=== PATIENT | male | born 1970 | race Two or more races ===

== ENCOUNTER 2023-03-01 12:24 | Outpatient (OUT) | payer SELFPAY ==
[2023-03-01 12:44] LABS: Basophils Percent Auto 0.5 % (0.2-2.0); Eosinophils Absolute Auto 0.1 10^3/uL (0.0-0.7); Eosinophils Percent Auto 1.1 % (0.9-7.0); Hematocrit 40.5 % (42.0-54.0); Hemoglobin 14.8 g/dL (14.0-18.0); Immature Granulocytes Abs Auto 0.02 10^3/uL (0.00-0.03); Immature Granulocytes Pct Auto 0.2 % (0.0-0.5); Lymphocytes Absolute Auto 2.2 10^3/uL (1.2-3.8); Lymphocytes Percent Auto 26.3 % (20.5-60.0); Mean Corpuscular HGB Conc 36.5 g/dL (29.9-35.2); Mean Corpuscular Hemoglobin 31.4 pg (25.9-34.0); Mean Platelet Volume 9.9 fL (9.5-13.5); Monocytes Absolute Auto 0.6 10^3/uL (0.3-0.8); Monocytes Percent Auto 7.2 % (1.7-12.0); Neutrophils Absolute Auto 5.3 10^3/uL (1.4-6.5); Neutrophils Percent Auto 64.7 % (43.0-75.0); Platelet Count 207 10^3/uL (150-450); Red Blood Count 4.71 10^6/uL (4.70-6.10); Red Cell Distribution Width 11.9 % (11.0-15.0); White Blood Count 8.3 10^3/uL (4.0-11.0)
[2023-03-01 12:55] LABS: Estimated Average Glucose 306 mg/dL; Glycohemoglobin A1C 12.3 % (4.5-6.2)
[2023-03-01 12:56] LABS: Microalbumin Urine Random <1.3 mg/dL (<=30.0)
[2023-03-01 13:55] LABS: Alanine Aminotransferase 28 U/L (16-63); Albumin Level 3.5 g/dL (3.4-5.0); Alkaline Phosphatase 63 U/L (46-116); Anion Gap 11.7; Aspartate Amino Transferase 12 U/L (15-37); BUN Creatinine Ratio 16.5; Bilirubin Total 0.7 mg/dL (0.2-1.0); Calcium 8.5 mg/dL (8.5-10.1); Carbon Dioxide 30.6 mmol/L (21.0-32.0); Chloride 91 mmol/L (98-107); Chol HDL Ratio 3.8; Cholesterol 206 mg/dL (<=200); Estimated GFR (African America >60 (>=60); Estimated GFR (Non-African Ame >60 (>=60); Globulin 3.5 g/dL; HDL Cholesterol 54 mg/dL (40-60); Potassium 4.3 mmol/L (3.5-5.1); Sodium 129 mmol/L (136-145); Thyroid Stimulating Hormone 1.478 uIU/mL (0.358-3.740); Triglycerides 329 mg/dL (<=150); VLDL CHOLESTEROL 65.8 mg/dL
[2023-03-01 13:58] LABS: Glucose 597 mg/dL (74-106)
== END 2023-03-01 12:25 | disposition home or self-care (01) ==
PROVIDERS: PCP Internal Medicine; Visit Provider Internal Medicine
DX: Z00.00 Encounter for general adult medical examination without abnormal findings (principal); Z12.5 Encounter for screening for malignant neoplasm of prostate
CPT/HCPCS: 36415; 80053; 80061; 82043; 83036; 84443; 85025; G0103

== ENCOUNTER 2023-06-07 12:33 | Outpatient (OUT) | payer SELFPAY ==
--- NOTE | 2023-06-07 12:37 | XR_ITS ---
[facility] [place] [id number] Patient Name: KARTHIK SCHUSTER MRN: [id number] date: 1970 Sex: M Assigned Patient Location: [facility] Current Patient Location: [facility] Accession/Order Number: [id number] Exam Date: 06/07/2023 13:00 Report Date: 06/07/2023 16:22 At the request of: GEORGE DAMON Procedure: XR lumbar spine 6V w bending EXAM: XR lumbar spine 6V w bending HISTORY: acute bilateral low back pain with right side sciatica COMPARISON: None. TECHNIQUE: 7 view study FINDINGS: Vertebral bodies are normal in height. There is disc space narrowing at L4-5 with early anterior osteophytosis. Mild disc space narrowing at L1-2, L2-3, and L3-4. Anterior osteophytosis at L2-3 and L3-4. There is facet arthropathy at L4-5 and L5-S1. Comparison of flexion and extension views shows no segmental instability. Paravertebral soft tissues are unremarkable. XR/XR lumbar spine 6V w bending IMPRESSION: Multilevel lumbar spondylosis. Electronically authenticated by: Tabatha PEDRAZA Date: 06/07/2023 16:22
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
--- OUTSIDE RECORDS SUMMARY | 2023-06-07 12:49 | XMS_ITS | CCD ---
Author Name Unknown Address [address] [facility] [address] [place] [id number] Organization [facility] Care Team Providers Care [employer] Vault Supervisor Name Role Phone LANCE DAMON Consulting Unavailable NELSON, LANCE Attending Unavailable NELSON, LANCE Admitting Unavailable NELSON, LANCE Consulting Unavailable NELSON, LANCE Attending Unavailable BALL, LANCE Admitting Unavailable Nelson, Lance Unavailable Medications Current Medications Medication Drug Class(es) Dates Sig (Normalized) Sig (Original) benazepril hydrochloride 10 mg oral tablet (5 sources) Angiotensin Converting Enzyme Inhibitor Start: 10-10-2022 take 1 tablet by mouth every twenty-four hours Benazepril HCl 10 MG 1 tablet Orally Once a day Oct, Active glimepiride 1 mg oral tablet (3 sources) Sulfonylurea Start: 03-05-2023 take 1 tablet by mouth every twenty-four hours Glimepiride 1 MG 1 tablet with breakfast or the first main meal of the day Orally Once a day for 30 days Feb, Active 3 ml insulin glargine 100 unt/ml pen injector (5 sources) Insulin Analog Start: 03-01-2023 Insulin Glargine Solostar 100 UNIT/ML 10 u: increase 2u every 3 days until FBS Feb, Active 3 ml insulin lispro 100 unt/ml pen injector (5 sources) Insulin Analog Start: 03-01-2023 HumaLOG KwikPen 100 UNIT/ML 2 - 12u per sliding scale Subcutaneous Prior to meals tid for 30 days Feb, Active metFORMIN hydrochloride 500 mg oral tablet (3 sources) Biguanide Start: 03-05-2023 take 1 tablet by mouth every twenty-four hours metFORMIN HCl 500 MG 1 tablet with a meal Orally Once a day for 30 days Feb, Active Completed/Discontinued Medications Medication Drug Class(es) Dates Sig (Normalized) Sig (Original) azithromycin 250 mg oral tablet (5 sources) Macrolide Antimicrobial Start: 01-17-2021 take 1 tablet by mouth once daily Azithromycin 250 MG Azithromycin 250MG, 2 (two) Tablet today followed by 1 daily # 6, 01/17/2021, No Refill. Active Oral today followed by 1 daily for 5 Jan, Not-Taking Problems Problem Classification Problem Date Documented Da te Episodic/Chronic Diabetes mellitus with complications (11 sources) Type 2 diabetes mellitus with hyperglycemia; Translations: [Type 2 diabetes mellitus] Onset: 04-22-2020 Chronic Disorders of lipid metabolism (11 sources) Mixed hyperlipidemia; Translations: [Mixed hyperlipidemia] Chronic Esophageal disorders (5 sources) Gastro-esophageal reflux disease with esophagitis; Translations: [Gastroesophageal reflux disease with esophagitis without hemorrhage] Chronic Essential hypertension (7 sources) Essential (primary) hypertension; Translations: [Essential hypertension] Onset: 05-05-2020 Chronic Immunizations and screening for infectious disease (4 sources) Contact with and (suspected) exposure to other viral communicable diseases; Translations: [CONTCT EXPS OTH VIRL COMMUNICABL DZ] Onset: 02-25-2020 Episodic Malaise and fatigue (1 source) Other fatigue; Translations: [OTHER FATIGUE] Onset: 05-05-2020 Episodic Other nutritional; endocrine; and metabolic disorders (1 source) Abnormal weight loss Episodic Other screening for suspected conditions (not mental disorders or infectious disease) (1 source) Encounter for screening for malignant neoplasm of colon Episodic Substance-related disorders (6 sources) Nicotine dependence; Translations: [Nicotine dependence, cigarettes, uncomplicated] Chronic Results Test Name Value Interpretation Reference Range Facil ity GLYCOHEMOGLOBIN A1Con 2019 Glucose [Mass/Vol] 108 mg/dL Normal [facility] Comment on above: Performed By: #### A 1C #### [facility] [address], [place] [address] Semaj Colmenares HbA1c (Bld) [Mass fraction] 5.4 % Normal <=6.0 [facility] Comment on above: Performed By: #### A 1C #### [facility] [address], [place] [address] Semaj Colmenares MICROALBUMIN, RAND URon 04-06 mALB 7.1 mg/dL Normal <=30.0 [facility] Comment on above: Performed By: #### M ALBR #### [facility] [address] [place], [place] [id number] Semaj Dedra mALBH PLEASE NOTE: NORMAL RANGE CHANGE, TESTING PERFORMED AT [facility]. Normal [facility] Comment on above: Performed By: #### M ALBR #### [facility] [address] [place] [id number] Semaj Dedra PROF CHEM 8 (BAS METB)on Anion gap [Moles/Vol] 12.1 mmol/L Normal [facility] Comment on above: Performed By: #### T SH, BMP #### [facility] [address] [place] [address] Semaj Dedra Calcium [Mass/Vol] 9.2 mg/dL Normal 8.4-10.2 [facility] Comment on above: Performed By: #### T SH, BMP #### [facility] [address] [place] [address] Semaj Dedra Chloride [Moles/Vol] 105 mmol/L Normal 98-107 [facility] Comment on above: Performed By: #### T SH, BMP #### [facility] [address] [place] [address] Semaj Dedra CO2 [Moles/Vol] 31.0 mmol/L Critically high 22.0-30.0 [facility] Comment on above: Performed By: #### T SH, BMP #### [facility] [address] [place] [address] Semaj Dedra Creatinine [Mass/Vol] 0.80 mg/dL Normal 0.66-1.25 [facility] Comment on above: Performed By: #### T SH, BMP #### [facility] [address] [place] [address] Semaj Dedra EGFR-AF MACEDONIAN >60 Normal >=60 [facility] Comment on above: Performed By: #### T SH, BMP #### [facility] [address] [place] [address] Semaj Dedra EGFR-NON AF MACEDONIAN >60 Normal >=60 [facility] Comment on above: Performed By: #### T SH, BMP #### [facility] [address] [place] [address] Semaj Dedra Glucose [Mass/Vol] 174 mg/dL Critically high 74-[address] [facility] Comment on above: Performed By: #### T SH, BMP #### [facility] [address] [place] [id number] Semaj Dedra Potassium [Moles/Vol] 4.1 mmol/L Normal 3.4-5.0 [facility] Comment on above: Performed By: #### T LOREN, BMP #### [facility] [address] [place] [address] Semaj Dedra Sodium [Moles/Vol] 144 mmol/L Normal 137-145 [facility] Comment on above: Performed By: #### T LOREN, BMP #### [facility] [address] [place] [address] Semaj Dedra Urea nitrogen [Mass/Vol] 17.0 mg/dL Normal 9.0-20.0 [facility] Comment on above: Performed By: #### T LOREN, BMP #### [facility] [address] [place] [address] Semaj Dedra Urea nitrogen/Creatinine [Mass ratio] 21.2 mg/mg Normal [facility] Comment on above: Performed By: #### T LOREN, BMP #### [facility] [address] [place] [address] Semaj Dedra TSHon 04-22-2020 TSH Qn 1.219 uIU/mL Normal 0.470-4.680 [facility] Comment on above: Performed By: #### T LOREN, BMP #### [facility] [address] [place] [address] Semaj Dedra TSH Qn SEE BELOW Normal [facility] Comment on above: Result Comment: <0.3 4 UIU/ml HYPERTHYROID 0.34-5.60 UIU/ml EUTHYROID >5.60 UIU/ml HYPOTHYROID Performed By: #### T LOREN, BMP #### [facility] [address] [place], [place] [id number] Semaj Dedra COVID-19 PCRon 02-26-2020 SARS-CoV-2, ABDIRAHMAN Not Detected Normal Not Detected [facility] Comment on above: Result Comment: This nucleic acid amplification test was developed and its performance characteristics determined by [employer]. Nucleic acid amplification tests include PCR and TMA. This test has not been FDA cleared or approved. This test has been authorized by FDA under an Emergency Use Authorization (EUA). This test is only authorized for the duration of time the declaration that circumstances exist justifying the authorization of the emergency use of in vitro diagnostic tests for detection of SARS-CoV-2 virus and/or diagnosis of COVID-19 infection under section 564(b)(1) of the Act, 21 U.S.C. 360bbb-3(b) (1), unless the authorization is terminated or revoked sooner. When diagnostic testing is negative, the possibility of a false negative result should be considered in the context of a patient's recent exposures and the presence of clinical signs and symptoms consistent with COVID-19. An individual without symptoms of COVID-19 and who is not shedding SARS-CoV-2 virus would expect to have a negative (not detected) result in this assay. Performed By: #### C VDPCR #### [facility] [address] [place] [address] Semajcherelle Colmenares Vital Signs Date Time Vital Sign Value Performing Clinician Facility 03-01-2023 11:30-0400 Body height 185.42 cm [facility] Other [facility] Other 03-01-2023 11:30-0400 Body mass index (BMI) [Ratio] 19.79 kg/m2 [facility] Other [facility] Other 03-01-2023 11:30-0400 Body weight 68.04 kg [facility] Other [facility] Other 03-01-2023 11:30-0400 Diastolic blood pressure 77 mm[Hg] [facility] Other [facility] Other 03-01-2023 11:30-0400 Respiratory rate 12 /min Lance Damon Other [facility] Other 03-01-2023 11:30-0400 Systolic blood pressure 107 mm[Hg] Lance Damon Other [facility] Other Encounters Encounter Date Encounter Type Care Provider Facility Start: 04-05-2023 End: 04-05-2023 ambulatory Lance Damon Other [facility] Other Start: 04-05-2023 Telephone encounter Lance Damon [facility] Start: 03-09-2023 End: 03-09-2023 ambulatory Lance Damon Other [facility] Other Start: 03-09-2023 Telephone encounter Lance Damon [facility] Start: 03-05-2023 End: 03-05-2023 ambulatory Lance Damon Other [facility] Other Start: 03-05-2023 Telephone encounter Lance Damon [facility] Start: 03-01-2023 End: 03-01-2023 ambulatory Lance Damon Other [facility] Other Start: 03-01-2023 Encounter for genera l adult medical examination without abnormal findings Lance Damon [facility] Start: 03-01-2023 Periodic preventive med est patient 40-64yrs Lance Damon [facility] Start: 03-01-2023 Telephone encounter Lance Damon [facility] Start: 04-22-2020 End: 04-23-2020 Patient encounter procedure LANCE DAMON Facility:[facility] Start: 02-25-2020 End: 02-26-2020 Patient encounter procedure LANCE DAMON Facility:[facility] Payers Date Payer Category Payer Unknown [id number] 1970 Unknown [id number] 1957 Self-pay [id number] 1957 Unknown [id number] Social History Date Type Detail Facility Sex Assigned At [facility] Other Medical Equipment Procedure Code Equipment Code Equipment Origin al Text Equipment Identifier Dates Pen Keo [id number] X 6 MM Start: 03-01-2023 Evaluation note 03-05-2023 Note Date & Type Note Facility 03-05-2023 Evaluation note Encounter Date Diagnosis Assessment Notes Feb, Type 2 diabetes mellitus with hyperglycemia , without long-term current use of insulin (ICD-10 - E11.65) [facility] Other Evaluation note 03-01-2023 Note Date & Type Note Facility 03-01-2023 Evaluation note Encounter Date Diagnosis Assessment Notes Feb, Type 2 diabetes mellitus with hyperglycemia, without long-term current use of insulin (ICD-10 - E11.65) He has not taken any medication for years He has significant weight loss and likely is hyperglycemic Check A1C and Microalbumin Patient's labs reveal an A1C > 12% - recommend insulin therapy - Basal Insulin at 16u q HS and titrate up 2u every 3 days - Humalog Insulin per sliding scale before meals - diabetic education Feb, Wellness examination (ICD-10 - Z00.00) Healthy diet and exercise. Reviewed age-appropriate preventive testing recommended. Feb, Primary hypertension (ICD-10 - I10) This patient is instructed to consume a healthy, low-fat, low-salt diet. They are also encouraged to continue exercise to achieve/maintain a normal BMI. Feb, Mixed hyperlipidemia (ICD-10 - E78.2) Instructed on diet and exercise.Discusse d the beneficial effects of lowering cholesterol in reducing the risk for cerebrovascular and cardiovascular disease. Not taking any medication Will check lipid profile and initiate treatment Feb, Cigarette nicotine dependence without complication (ICD-10 - F17.210) This patient has been encouraged to quit tobacco use immediately. They are aware of the hazards associated with tobacco use, including but not limited to respiratory infections, vascular disease and cancers. Feb, Unexplained weight loss (ICD-10 - R63.4) Maintains good appetite but has lost weight Checking TSH, A1C, Hepatic pf and GFR If unable to expain w/ labs, will refer for EGD, colonoscopy and CT abd/pelvis Feb, Colon cancer screening (ICD-10 - Z12.11) [facility] Other Evaluation note Note Date & Type Note Facility Evaluation note No Information [facility] Other History general Narrative - Reported Note Date & Type Note Facility History general Narrative - Reported Type Medical History Hyperlipidemia, mixed Medical History Controlled type 2 di abetes mellitus with hyperglycemia, without long-term current use of insulin Medical History Cigarette nicotine d ependence without complication Medical History Gastroesophageal ref lux disease with esophagitis without hemorrhage Surgical History No know Surgical history [facility] Other History general Narrative - Reported Note Date & Type Note Facility History general Narrative - Reported Type Medical History Hyperlipidemia, mixed Medical History Controlled type 2 di abetes mellitus with hyperglycemia, without long-term current use of insulin Medical History Cigarette nicotine d ependence without complication Medical History Gastroesophageal ref lux disease with esophagitis without hemorrhage Surgical History No Surgical history information [facility] Other Summary Purpose Family History No Family History Records Found Advance Directives No Advanced Directives Records Found Additional Source Comments (unrecognized sect ion and content) No Status Records Found INFORMATION SOURCE (unrecogn ized section and content) DATE CREATED AUTHOR 05/06/2020 [facility] [place] [facility] REASON FOR VISIT (unrecogniz ed section and content) Roger InformationNo Info rmationNeeds OV next weekrefill FOR RECORDS PERTAINING TO PATIENTS WHO ARE OR HAVE BEEN ENROLLED IN A CHEMICAL DEPENDENCY/SUBSTANCEABUSE PROGRAM, SOME INFORMATION MAY BE OMITTED. This clinical summary was aggregated from multiple sources. Caution should be exercised in using it in the provision of clinical care. This summary normalizes information from multiple sources, and as a consequence, information in this document may materially change the coding, format and clinical context of patient data. In addition, data may be omitted in some cases. CLINICAL DECISIONS SHOULD BE BASED ON THE PRIMARY CLINICAL RECORDS. [employer] provides no warranty or guarantee of the accuracy or completeness of information in this document.
== END 2023-06-07 12:34 | disposition home or self-care (01) ==
LOC: RAD 12:33
PROVIDERS: PCP Internal Medicine; Visit Provider Internal Medicine
DX: M54.41 Lumbago with sciatica, right side (principal); S06.0X0A Concussion without loss of consciousness, initial encounter; M47.816 Spondylosis without myelopathy or radiculopathy, lumbar region
CPT/HCPCS: 70450; 72114

== ENCOUNTER 2023-12-31 09:02 | Outpatient (OUT) | payer BC, SELFPAY ==
--- NOTE | 2023-12-31 09:16 | XR_ITS ---
[facility] [place] [id number] Patient Name: KARTHIK SCHUSTER MRN: [id number] date: 1970 Sex: M Assigned Patient Location: LAB Current Patient Location: Accession/Order Number: [id number] Exam Date: 12/31/2023 09:25 Report Date: 01/01/2024 06:29 At the request of: GEORGE DAMON Procedure: XR lumbar spine 6V w bending EXAMINATION: XR lumbar spine 6V w bending HISTORY: Low Back Pain COMPARISON: XR lumbar spine 06/07/2023 FINDINGS: BONES: Mild right convex curvature of lumbar spine. Mild straightening of the normal lordotic curvature. No fracture, spondylolisthesis, or change in alignment during flexion and extension. DISC SPACES: Mild disc space narrowing L1-L2 and L2-L3 with suspected prominent posterior disc osteophyte complexes. Moderate narrowing L4-L5. Moderate degenerative facet arthropathy L4-L5, L5-S1. PARASPINOUS: Numerous small calcifications within abdomen, probably anterior and right of the spine. OTHER: Negative. XR/XR lumbar spine 6V w bending IMPRESSION: 1. Grossly stable multilevel degenerative changes of lumbar spine. 2. No appreciable acute abnormality. Electronically authenticated by: DELVIS BANDA Date: 01/01/2024 06:29
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
[2023-12-31 09:32] LABS: Basophils Absolute Auto 0.1 10^3/uL (0.0-0.1); Basophils Percent Auto 0.8 % (0.2-2.0); Eosinophils Absolute Auto 0.1 10^3/uL (0.0-0.7); Eosinophils Percent Auto 1.2 % (0.9-7.0); Hematocrit 44.4 % (42.0-54.0); Hemoglobin 15.7 g/dL (14.0-18.0); Immature Granulocytes Abs Auto 0.02 10^3/uL (0.00-0.03); Immature Granulocytes Pct Auto 0.3 % (0.0-0.5); Lymphocytes Absolute Auto 1.8 10^3/uL (1.2-3.8); Lymphocytes Percent Auto 24.2 % (20.5-60.0); Mean Corpuscular HGB Conc 35.4 g/dL (29.9-35.2); Mean Corpuscular Hemoglobin 31.6 pg (25.9-34.0); Mean Corpuscular Volume 89.3 fL (80.0-94.0); Monocytes Absolute Auto 0.4 10^3/uL (0.3-0.8); Neutrophils Percent Auto 67.5 % (43.0-75.0); Platelet Count 205 10^3/uL (150-450); Red Blood Count 4.97 10^6/uL (4.70-6.10); Red Cell Distribution Width 12.4 % (11.0-15.0); White Blood Count 7.4 10^3/uL (4.0-11.0)
[2023-12-31 09:32] LABS: Bilirubin Urine NEGATIVE (NEGATIVE); Blood Urine NEGATIVE (NEGATIVE); Clarity Urine CLEAR (CLEAR); Color Urine YELLOW (YELLOW); Glucose Urine UA NEGATIVE (NEGATIVE); Ketones Urine NEGATIVE (NEGATIVE); Leukocyte Esterase Urine NEGATIVE (NEGATIVE); Nitrite Urine NEGATIVE (NEGATIVE); Protein Urine NEGATIVE (NEG/TRACE); Specific Gravity Urine >=1.030 (1.005-1.025); Urobilinogen Urine 0.2 EU/dL (0.2-1.0); pH Urine 5.5 (5.0-9.0)
[2023-12-31 10:13] LABS: Bacteria Urine NONE SEEN #/HPF (NONE SEEN); Mucus Urine NONE SEEN (NONE SEEN); RBC Urine NONE SEEN #/HPF (0-2); Squamous Epithelial Cell Urine FEW #/LPF (NONE/RARE); WBC Urine NONE SEEN #/HPF (NONE SEEN)
[2023-12-31 10:49] LABS: Alanine Aminotransferase 24 U/L (16-63); Albumin Globulin Ratio 1.1; Albumin Level 3.9 g/dL (3.4-5.0); Alkaline Phosphatase 48 U/L (46-116); Aspartate Amino Transferase 17 U/L (15-37); BUN Creatinine Ratio 21.2; Bilirubin Total 1.4 mg/dL (0.2-1.0); Carbon Dioxide 28.3 mmol/L (21.0-32.0); Chloride 105 mmol/L (98-107); Estimated GFR (African America >60 (>=60); Estimated GFR (Non-African Ame >60 (>=60); Globulin 3.5 g/dL; Glucose 123 mg/dL (74-106); Potassium 4.3 mmol/L (3.5-5.1); Sodium 142 mmol/L (136-145); Thyroid Stimulating Hormone 1.344 uIU/mL (0.358-3.740); Total Protein 7.4 g/dL (6.4-8.2)
[2023-12-31 11:28] LABS: Estimated Average Glucose 105 mg/dL; Glycohemoglobin A1C 5.3 % (4.5-6.2)
== END 2023-12-31 09:03 | disposition home or self-care (01) ==
LOC: LAB 09:04
PROVIDERS: PCP Internal Medicine; Visit Provider Internal Medicine
DX: E11.65 Type 2 diabetes mellitus with hyperglycemia (principal); M54.50 Low back pain, unspecified; I10 Essential (primary) hypertension; F17.210 Nicotine dependence, cigarettes, uncomplicated; M51.36 Other intervertebral disc degeneration, lumbar region
CPT/HCPCS: 36415; 72114; 80053; 81001; 83036; 84443; 85025

== ENCOUNTER 2024-04-21 13:31 | Outpatient (OUT) | payer OTHER, SELFPAY ==
--- OUTSIDE RECORDS SUMMARY | 2024-04-21 13:41 | XMS_ITS | CCD ---
Author Organization [facility] Care Team Providers Care Antenna Specialist Name Role Phone [employer]ANCE [employer] Unavailable [...] A1Con 2019 Glucose [Mass/Vol] 108 mg/dL Normal [facility] Comment on above: Performed By: #### A 1C #### [facility] [address] [id number] Semaj Colmenares HbA1c (Bld) [Mass fraction] 5.4 % Normal <=6.0 [facility] Comment on above: Performed By: #### A 1C #### [facility] [address] [place], [place] [address] Semaj Colmenares MICROALBUMIN, RAND URon 04-06 mALB 7.1 mg/dL Normal <=30.0 [facility] Comment on above: Performed By: #### M ALBR #### [facility] [address] [place], [place] [address] Semaj Colmenares mALBH PLEASE NOTE: NORMAL RANGE CHANGE, TESTING PERFORMED AT [facility]. Normal [facility] Comment on above: Performed By: #### M ALBR #### [facility] [address] [place], [place] [address] Semaj Colmenares PROF CHEM 8 (BAS METB)on 12- 17-2020 Anion gap [Moles/Vol] 12.1 mmol/L Normal Th e [facility] Comment on above: Performed By: #### T SH, BMP #### [facility] [address] [place] [address] Semaj Dedra Calcium [Mass/Vol] 9.2 mg/dL Normal 8.4-10.2 [facility] Comment on above: Performed By: #### T SH, BMP #### [facility] [address] [place] [address] Semaj Dedra Chloride [Moles/Vol] 105 mmol/L Normal 98-107 [facility] Comment on above: Performed By: #### T LOREN, BMP #### [facility] [address] [place] [address] Semaj Dedra CO2 [Moles/Vol] 31.0 mmol/L Critically high 22.0-30.0 [facility] Comment on above: Performed By: #### T LOREN, BMP #### [facility] [address] [place] [address] Semaj Dedra Creatinine [Mass/Vol] 0.80 mg/dL Normal 0.66-1.25 [facility] Comment on above: Performed By: #### T LOREN, BMP #### [facility] [address] [place] [address] Semaj Dedra EGFR-AF COMORAN >60 Normal >=60 [facility] Comment on above: Performed By: #### T LOREN, BMP #### [facility] [address] [place] [address] Semaj Dedra EGFR-NON AF COMORAN >60 Normal >=60 [facility] Comment on above: Performed By: #### T SH, BMP #### [facility] [address] [place] [address] Semaj Dedra Glucose [Mass/Vol] 174 mg/dL Critically high 74-106 [facility] Comment on above: Performed By: #### T LOREN, BMP #### [facility] [address] [place] [address] Semaj Dedra Potassium [Moles/Vol] 4.1 mmol/L Normal 3.4-5.0 [facility] Comment on above: Performed By: #### T SH, BMP #### [facility] [address] [place] [address] Semaj Colmenares Sodium [Moles/Vol] 144 mmol/L Normal 137-145 [facility] Comment on above: Performed By: #### T SH, BMP #### [facility] [address] [place], [place] [id number] Semaj Dedra Urea nitrogen [Mass/Vol] 17.0 mg/dL Normal 9.0-20.0 [facility] Comment on above: Performed By: #### T SH, BMP #### [facility] [address] [place] [address] Semaj Colmenares Urea nitrogen/Creatinine [Mass ratio] 21.2 mg/mg Normal [facility] Comment on above: Performed By: #### T SH, BMP #### [facility] [address] [place] [address] Semaj Colmenares TSHon 04-22-2020 TSH Qn 1.219 uIU/mL Normal 0.470-4.680 [facility] Comment on above: Performed By: #### T SH, BMP #### [facility] [address] [place], [place] [id number] Semaj Colmenares TSH Qn SEE BELOW Normal [facility] Comment on above: Result Comment: <0.3 4 UIU/ml HYPERTHYROID 0.34-5.60 UIU/ml EUTHYROID >5.60 UIU/ml HYPOTHYROID Performed By: #### T SH, BMP #### [facility] [address] [place] [address] Semaj Colmenares COVID-19 PCRon 02-26-2020 SARS-CoV-2, ABDIRAHMAN Not Detected Normal Not Detected [facility] Comment on above: Result Comment: This nucleic acid amplification test was developed and its performance characteristics determined by [employer]. Nucleic acid amplification tests include PCR and [...] assay. Performed By: #### C VDPCR #### [facility] [address] [place] [address] Semaj Colmenares Vital Signs Date Time Vital Sign Value Performing Clinician Facility 12-28-2023 10:31-0400 Body height 185.42 cm [facility] 12-28-2023 10:31-0400 Body mass index (BMI) [Ratio] 21.2 kg/m2 [facility] 12-28-2023 10:31-0400 Body weight 73.02 kg [facility] 12-28-2023 10:31-0400 Diastolic blood pressure 86 mm[Hg] [facility] 12-28-2023 10:31-0400 Heart rate 88 /min [facility] 12-28-2023 10:31-0400 SaO2% (BldA) [Mass fraction] 97 % [facility] 12-28-2023 10:31-0400 Systolic blood pressure 130 mm[Hg] [facility] 10-09-2023 10:02-0400 Body height 185.42 cm [facility] 10-09-2023 10:02-0400 Body mass index (BMI) [Ratio] 19.5 kg/m2 [facility] 10-09-2023 10:02-0400 Body weight 67.3 kg [facility] 10-09-2023 10:02-0400 Diastolic blood pressure 88 mm[Hg] [facility] 10-09-2023 10:02-0400 Heart rate 106 /min [facility] 10-09-2023 10:02-0400 Respiratory rate 12 /min [facility] 10-09-2023 10:02-0400 Systolic blood pressure 125 mm[Hg] [facility] 06-05-2023 14:00-0500 Body height 185.42 cm Lance Ball Other [facility] [email or web address] Other 06-05-2023 14:00-0500 Body mass index (BMI) [Ratio] 18.65 kg/m2 Lance Ball Other [facility] Other 06-05-2023 14:00-0500 Body weight 64.14 kg Lance Ball Other [facility] Other 06-05-2023 14:00-0500 Diastolic blood pressure 82 mm[Hg] Lance Ball Other [facility] Other 06-05-2023 14:00-0500 Respiratory rate 12 /min Lance Ball Other [facility] Other 06-05-2023 14:00-0500 Systolic blood pressure 114 mm[Hg] Lance Ball Other [facility] Other 03-01-2023 11:30-0400 Body height 185.42 cm Lance Ball Other [facility] Other 03-01-2023 11:30-0400 Body mass index (BMI) [Ratio] 19.79 kg/m2 Lance Ball Other [facility] Other 03-01-2023 11:30-0400 Body weight 68.04 kg Lance Ball Other [facility] Other 03-01-2023 11:30-0400 Diastolic blood pressure 77 mm[Hg] Lance Ball Other [facility] Other 03-01-2023 11:30-0400 Respiratory rate 12 /min Lance Damon Other [facility] Other 03-01-2023 11:30-0400 Systolic blood pressure 107 mm[Hg] Lance Damon Other [facility] Other Encounters Encounter Date Encounter Type Care Provider Facility Start: 12-28-2023 End: 12-28-2023 ambulatory [facility] Work Phone: Start: 12-28-2023 End: 12-28-2023 Patient encounter procedure [facility] Work Phone: Start: 10-09-2023 End: 10-09-2023 ambulatory [facility] Work Phone: Start: 10-09-2023 End: 10-09-2023 Patient encounter procedure [facility] Work Phone: Start: 06-15-2023 End: 06-15-2023 ambulatory Lance Ball Other [facility] Other Start: 06-15-2023 Telephone encounter Lance Ball [facility] Start: 06-08-2023 End: 06-08-2023 ambulatory Lance Ball Other [facility] Other Start: 06-08-2023 Telephone encounter Lance Ball [facility] Start: 06-05-2023 End: 06-05-2023 ambulatory Lance Ball Other [facility] Other Start: 06-05-2023 Office outpatient vi sit 25 minutes Lance Ball [facility] Start: 04-05-2023 End: 04-05-2023 ambulatory Lance Ball Other [facility] Other Start: 04-05-2023 Telephone encounter Alnce Ball [facility] Start: 03-09-2023 End: 03-09-2023 ambulatory Lance Damon Other [facility] Other Start: 03-09-2023 Telephone encounter [facility] Start: 03-05-2023 End: 03-05-2023 ambulatory Lance Damon Other [facility] Other Start: 03-05-2023 Telephone encounter Lance ODELL [facility] Start: 03-01-2023 End: 03-01-2023 ambulatory Lance Damon Other [facility] Other Start: 03-01-2023 Encounter for genera l [...] panel - Serum or Plasma [facility] enter XR Lumbar spine Views [facility] Payers Date Payer Category Payer Unknown [id number] 1970 Unknown [id number] Self-pay [id number] 1957 Unknown [id number] Unknown MMO [id number] Unknown [id number] Social History Date Type Detail Facility Sex [facility]igned [email or web address] [email or web address] Other Start: 1970 Sex Assigned At Male [facility] Start: 12-28-2023 Tobacco smoking stat NHIS Current some day smoker [facility] Medical Equipment Procedure Code Equipment Code Equipment Origin al Text Equipment Identifier Dates Pen [place] [id number] X 6 MM Start: 03-01-2023 Evaluation [...] and record. - instructed to update office [facility] Other Evaluation note 03-05-2023 Note Date & Type Note Facility 03-05-2023 Evaluation note Encounter Date Diagnosis Assessment Notes Feb, Type 2 diabetes mellitus with hyperglycemia , without long-term current use of insulin (ICD-10 - E11.65) [facility] Other Evaluation note 03-01-2023 Note Date & [...] Feb, Colon cancer screening (ICD-10 - Z12.11) [facility] Other Evaluation note Note Date & Type Note Facility Evaluation note No Information [employer] Other Evaluation note Note Date & Type Note Facility Evaluation note Diagnosis Onset Date Cigarette nicotine dependenc e without complication acute Diarrhea acute Primary hypertension acute Type 2 diabetes mellitus with hyperglycemia acute [facility] Work Phone: Evaluation note Note Date & Type Note Facility Evaluation note Diagnosis Onset Date Cigarette nicotine dependenc e without complication acute Diarrhea acute Primary hypertension acute Type 2 diabetes mellitus with hyperglycemia acute Type 2 diabetes mellitus with hyperglycemia acute [facility] Work Phone: History general Narrative - Reported Note Date & Type Note Facility History general Narrative - Reported Type Medical History Hyperlipidemia, mixed Medical History Controlled type 2 di abetes mellitus with hyperglycemia, without long-term current use of insulin Medical History Cigarette nicotine d ependence without complication Medical History Gastroesophageal ref lux disease with esophagitis without hemorrhage Surgical History No know Surgical history [facility] Other History general Narrative - Reported Note Date & Type Note Facility History general Narrative - Reported Type Medical History Hyperlipidemia, mixed Medical History Controlled type 2 di abetes mellitus with hyperglycemia, without long-term current use of insulin Medical History Cigarette nicotine d ependence without complication Medical History Gastroesophageal ref lux disease with esophagitis without hemorrhage Surgical History No Surgical history information [facility] Other Summary Purpose Family History Relationship Condition [...] BE BASED ON THE PRIMARY CLINICAL RECORDS. [facility] [employer] [facility] provides no warranty or guarantee of the accuracy or completeness of information in this document.
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
== END 2024-04-21 13:32 | disposition home or self-care (01) ==
LOC: PM 13:32
PROVIDERS: PCP Internal Medicine; Visit Provider Anesthesiology
DX: M47.816 Spondylosis without myelopathy or radiculopathy, lumbar region (principal)
CPT/HCPCS: G0463

== ENCOUNTER 2024-05-19 07:36 | Day surgery (SDC) | payer OTHER, SELFPAY ==
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
[2024-05-19 08:05] VITALS: BP 149/99; PULSE 94; TEMP 36.4; O2SAT 100
[2024-05-19 08:09] LABS: Glucometer 127 mg/dL (74-106)
[2024-05-19 08:50] VITALS: BP 142/84; PULSE 81; O2SAT 100
[2024-05-19 08:51] VITALS: BP 150/84; PULSE 70; O2SAT 100
[2024-05-19] MEDS: BUPIVACAINE HCL 0.25% PF 25 MG/10 ML VIAL 6 ML INJ (08:51)
[2024-05-19] MEDS: LIDOCAINE HCL 2% 400 MG/20 ML MDV INJ (08:52)
--- NOTE | 2024-05-19 08:54 | W.PM.PROCNOT ---
Date of procedure: 05/19/24 Pre-op diagnosis: Pain due to lumbar spondylosis without myelopathy Post-op diagnosis: same as pre-op Procedure: Procedure: Bilateral L4-5, L5-S1 medial branch block Medications: Bupivacaine 0.25% 6cc The patient was seen and examined in the preoperative holding area.? An informed consent was obtained and placed on the chart.? The patient was brought to the medical procedure unit and placed in the prone position.? A timeout was completed verifying correct patient, procedure site, positioning, plan, and special equipment.? Using aseptic technique, the needle was placed at left L4. Under direct fluoroscopic visualization a Quincke-tipped spinal needle was advanced to the junction of the superior articulating process with the transverse process at the designated medial branch segment.? Preceded by negative aspiration, the above-mentioned injectate was placed in 1 mL aliquots.? The procedure was repeated at left L5, S1.? The needle was removed and insertion site was covered. The same procedure, at the same levels, was completed on the right side. The patient was taken to the postprocedural recovery area and monitored for an appropriate length of time before found suitable for discharge in the company of a responsible adult. Anesthesia: Local Surgeon: Boogie Bahena Pathology: none sent Condition: stable Disposition: no change
== END 2024-05-19 09:01 | disposition home or self-care (01) ==
PROVIDERS: PCP Internal Medicine; Visit Provider Anesthesiology
DX: M47.816 Spondylosis without myelopathy or radiculopathy, lumbar region (principal)
CPT/HCPCS: 36415; 64493; 64494; 82948; J0665

== ENCOUNTER 2024-05-29 10:03 | Outpatient (OUT) | payer OTHER, SELFPAY ==
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
--- NOTE | 2024-05-29 10:30 | P.CN_ITS ---
Consult Note: HPI Data of Consult Patient: known to practice within the last 3 years Requesting Physician: Dulce Harvey NP Primary Care Provider: Lance Pool DO Consult Narrative Reason for consult: f/u Narrative: Shayan Flores a pleasant 53 year old male presents for evaluation/management of chronic low back pain. prior xray consistent with lumbar spondylosis and DDD. pt has failed to benefit from 6 weeks of PT/provider guided HEP, tylenol, nsaids, heat and ice. finds mild benefit to icy hot and warm showers. pain 7/10 increasing to 10/10 in low back with standing, walking, pushing, pulling, bending. recently underwent bilateral L4/5 L5/S1 MBB #1 with >80% improvement in pain and functional ability immediately following and four hours after the injection. Preop pain up to 10/10, post op pain 2/10. cc:: CC: Dulce Harvey NP Review of Systems ROS Musculoskeletal Reports: back pain PFSH PFS Medical History (Updated 05/06/24 @ 14:52 by Karla Patterson RN) Osteoarthritis ?M19.90 - Unspecified osteoarthritis, unspecified site (ICD-10) Diabetes ?E11.9 - Type 2 diabetes mellitus without complications (ICD-10) Meds Home Medications and Allergies Home Medications ?Medication ?Instructions ?Recorded ?Confirmed ?Type benazepril 10 mg tablet 10 mg PO DAILY 05/06/24 05/19/24 History glimepiride 1 mg tablet 1 mg PO DAILY 05/06/24 05/19/24 History Allergies Allergy/AdvReac Type Severity Reaction Status Date / Time No Known Drug Allergies Allergy Verified 05/19/24 08:10 Exam Constitutional Documenting provider has reviewed patient's vital signs: yes Common normals: no apparent distress, oriented x3, healthy appearing, alert and well nourished General appearance: cooperative HENMT Common normals: normocephalic, hearing grossly normal bilaterally and moist oral mucous membranes Head and scalp: normocephalic Eye Common normals: PERRL Pupil: PERRL Neck & C-Spine Common normals: full ROM General: normal visual inspection Chest Common normals: inspection of chest normal Respiratory Common normals: normal respiratory effort, no retractions and no use of accessory muscles Back & Pelvis Lumbar spine/lower back: ROM limited, pain with ROM, lumbar spinal tenderness and straight leg raise negative bilaterally; no paraspinal muscle tenderness and no paraspinal muscle spasm Other: positive facet loading strength 5/5 in BLE Neuro Common normals: oriented x3, CN's II-XII intact bilaterally, moves all extremities, no focal motor deficits, no sensory deficits noted and deep tendon reflexes 2+ bilaterally Sensorium/orientation: alert Motor exam: strength 5/5 throughout and no movement abnormalities noted Psych Common normals: mental status grossly normal, thought process normal, cooperative, affect normal, speech normal and activity/motor behavior normal Speech: normal speech Thought process: normal thought process Assessment and Plan Assessment and Plan (1) Lumbar spondylosis: Assessment and Plan: The patient has had over 3 months of moderate to severe low back pain with functional impairment and inadequate response to conservative care including NSAIDS (unless there are contraindication such as concurrent blood thinners), multiple oral or topical pain medications, and home exercise program/physical therapy.? Patient has completed >6 weeks of guided home exercise program and/or formal ph ysical therapy program without relief of their symptoms.? I have reviewed the imaging of the lumbar spine and no red flags were identified.? The imaging reveals radiographic findings consistent with lumbar spondylosis The Oswestry Disability Index was completed, and the patient scored a 36%.? The patient noted the following:?? moderate to severe pain impacting ability to sit, stand, walk, lift and sleep We discussed the risks and benefits of the procedure with the patient, and we are NOT planning on using sedation as outlined in the guidelines from Medicare unless there is a documented reason that sedation would be strongly recommended.??The procedure will be completed with fluoroscopic guidance.? Plan bilateral L4-5 L5-S1 medial branch block #2 working towards RFA start meloxicam 7.5mg BID PRN pain, take with food continue HEP as tolerated f/u after injection
== END 2024-05-29 10:04 | disposition home or self-care (01) ==
PROVIDERS: PCP Internal Medicine; Visit Provider Nurse Practitioner
DX: M47.816 Spondylosis without myelopathy or radiculopathy, lumbar region (principal)
CPT/HCPCS: G0463

== ENCOUNTER 2024-06-09 09:00 | Day surgery (SDC) | payer OTHER, SELFPAY ==
--- OUTSIDE RECORDS SUMMARY | 2024-06-09 09:11 | XMS_ITS | CCD ---
Author Organization [facility] Care Team Providers Care Dean Of Graduate Studies Name Role Phone [employer] Unavailable [...] A1Con 2019 Glucose [Mass/Vol] 108 mg/dL Normal [facility] Comment on above: Performed By: #### A 1C #### [facility] [address] [id number] Semaj Colmenares HbA1c (Bld) [Mass fraction] 5.4 % Normal <=6.0 [facility] Comment on above: Performed By: #### A 1C #### [facility] [address] [id number] Semaj Colmenares MICROALBUMIN, RAND URon 04-06 mALB 7.1 mg/dL Normal <=30.0 [facility] Comment on above: Performed By: #### M ALBR #### [facility] [address] [id number] Semaj Colmenares mALBH PLEASE NOTE: NORMAL RANGE CHANGE, TESTING PERFORMED AT [facility]. Normal [facility] Comment on above: Performed By: #### M ALBR #### [facility] [address] [id number] Semaj Dedra PROF CHEM 8 (BAS METB)on Anion gap [Moles/Vol] 12.1 mmol/L Normal [facility] Comment on above: Performed By: #### T LOREN, BMP #### [facility] [address] [place] [address] Semaj Dedra Calcium [Mass/Vol] 9.2 mg/dL Normal 8.4-10.2 [facility] Comment on above: Performed By: #### T SH, BMP #### [facility] [address] [place] [address] Semaj Dedra Chloride [Moles/Vol] 105 mmol/L Normal 98-107 [facility] Comment on above: Performed By: #### T LOREN, BMP #### [facility] [address] [place] [address] Semaj Dedra CO2 [Moles/Vol] 31.0 mmol/L Critically high 22.0-30.0 [facility] Comment on above: Performed By: #### T LOREN, BMP #### [facility] [address] [place] [address] Semaj Dedra Creatinine [Mass/Vol] 0.80 mg/dL Normal 0.66-1.25 [facility] Comment on above: Performed By: #### T LOREN, BMP #### [facility] [address] [place] [address] Semaj Dedra EGFR-AF COSTA RICAN >60 Normal >=60 [facility] Comment on above: Performed By: #### T SH, BMP #### [facility] [address] [place] [address] Semaj Dedra EGFR-NON AF COSTA RICAN >60 Normal >=60 [facility] Comment on above: Performed By: #### T SH, BMP #### [facility] [address] [place] [address] Semaj Dedra Glucose [Mass/Vol] 174 mg/dL Critically high 74-106 [facility] Comment on above: Performed By: #### T LOREN, BMP #### [facility] [address] [place] [address] Semaj Dedra Potassium [Moles/Vol] 4.1 mmol/L Normal 3.4-5.0 [facility] Comment on above: Performed By: #### T LOREN, BMP #### [facility] [address] [place] [address] Semaj Dedra Sodium [Moles/Vol] 144 mmol/L Normal 137-145 [facility] Comment on above: Performed By: #### T LOREN, BMP #### [facility] [address] [place], [place] [phone] Semaj Dedra Urea nitrogen [Mass/Vol] 17.0 mg/dL Normal 9.0-20.0 [facility] Comment on above: Performed By: #### T LOREN, BMP #### [facility] [address] [place] [address] Semaj Dedra Urea nitrogen/Creatinine [Mass ratio] 21.2 mg/mg Normal [facility] Comment on above: Performed By: #### T LOREN, BMP #### [facility] [address] [place] [address] Semaj Dedra TSHon 04-22-2020 TSH Qn 1.219 uIU/mL Normal 0.470-4.680 [facility] Comment on above: Performed By: #### T LOREN, BMP #### [facility] [address] [place] [address] Semaj Dedra TSH Qn SEE BELOW Normal [facility] Comment on above: Result Comment: <0.3 4 UIU/ml HYPERTHYROID 0.34-5.60 UIU/ml EUTHYROID >5.60 UIU/ml HYPOTHYROID Performed By: #### T LOREN, BMP #### [facility] [address] [place], [place] [phone] Semaj Colmenares COVID-19 PCRon 02-26-2020 SARS-CoV-2, ABDIRAHMAN Not Detected Normal Not Detected [facility] Comment on above: Result Comment: This nucleic acid amplification test was developed and its performance characteristics determined by [employer]. Nucleic acid amplification tests include PCR and [...] assay. Performed By: #### C VDPCR #### [facility] [address] [place] [address] Semaj Colmenares Vital Signs Date Time Vital Sign Value Performing Clinician Facility 12-28-2023 10:[id number] Body height 185.42 cm [facility] 12-28-2023 10:31-0400 Body mass index (BMI) [Ratio] 21.2 kg/m2 [facility] 12-28-2023 10:31-0400 Body weight 73.02 kg [facility] 12-28-2023 10:31-0400 Diastolic blood pressure 86 mm[Hg] [facility] 12-28-2023 10:31-0400 Heart rate 88 /min [facility] 12-28-2023 10:31-0400 SaO2% (BldA) [Mass fraction] 97 % [facility] 12-28-2023 10:31-0400 Systolic blood pressure 130 mm[Hg] [facility] 10-09-2023 10:020400 Body height 185.42 cm [facility] 10-09-2023 10:02-0400 Body mass index (BMI) [Ratio] 19.5 kg/m2 [facility] 10-09-2023 10:[id number] Body weight 67.3 kg [facility] 10-09-2023 10:02-0400 Diastolic blood pressure 88 mm[Hg] [facility] 10-09-2023 10:02-0400 Heart rate 106 /min [facility] 10-09-2023 10:02-0400 Respiratory rate 12 /min [facility] 10-09-2023 10:02-0400 Systolic blood pressure 125 mm[Hg] [facility] 06-05-2023 14:00-0500 Body height 185.42 cm Lance Ball Other [facility] [employer] Other 06-05-2023 14:00-0500 Body mass index (BMI) [Ratio] 18.65 kg/m2 Lance Ball Other [employer] Other 06-05-2023 14:00-0500 Body weight 64.14 kg Lance Ball Other [employer] Other 06-05-2023 14:00-0500 Diastolic blood pressure 82 mm[Hg] Lance Ball Other [employer] Other 06-05-2023 14:00-0500 Respiratory rate 12 /min Lance Ball Other [employer] Other 06-05-2023 14:00-0500 Systolic blood pressure 114 mm[Hg] Lance Ball Other [employer] Other 03-01-2023 11:30-0400 Body height 185.42 cm Lance Ball Other [employer] Other 03-01-2023 11:30-0400 Body mass index (BMI) [Ratio] 19.79 kg/m2 Lance Ball Other [employer] Other 03-01-2023 11:30-0400 Body weight 68.04 kg Lance Ball Other [employer] Other 03-01-2023 11:30-0400 Diastolic blood pressure 77 mm[Hg] Lance Damon Other [employer] Other 03-01-2023 11:30-0400 Respiratory rate 12 /min Lance Damon Other [employer] Other 03-01-2023 11:30-0400 Systolic blood pressure 107 mm[Hg] Lance Damon Other [employer] Other Encounters Encounter Date Encounter Type Care Provider Facility Start: 05-19-2024 End: 05-19-2024 ambulatory Boogie [facility]hena [facility] Start: 04-21-2024 End: 04-21-2024 ambulatory Boogie Bahena MD Facility:[facility] Start: 12-28-2023 End: 12-28-2023 ambulatory [facility] Work Phone: Start: 12-28-2023 End: 12-28-2023 Patient encounter procedure [facility] Work Phone: Start: 10-09-2023 End: 10-09-2023 ambulatory [facility] Work Phone: Start: 10-09-2023 End: 10-09-2023 Patient encounter procedure [facility] Work Phone: Start: 06-15-2023 End: 06-15-2023 ambulatory Lance Damon Other [employer] Other Start: 06-15-2023 Telephone encounter Lance ODELL [facility] Start: 06-08-2023 End: 06-08-2023 ambulatory Lance Damon Other [employer] Other Start: 06-08-2023 Telephone encounter Lance Nelson [facility] Start: 06-05-2023 End: 01-30-2024 ambulatory Lance Damon Other [employer] Other Start: 06-05-2023 Office outpatient vi sit 25 minutes Lance Damon [facility] Start: 04-05-2023 End: 04-05-2023 ambulatory Lance Damon Other [employer] Other Start: 04-05-2023 Telephone encounter Lance Damon [facility] Start: 03-09-2023 End: 03-09-2023 ambulatory Lance Damon Other [employer] Other Start: 03-09-2023 Telephone encounter Lance Damon [facility] Start: 03-05-2023 End: 03-05-2023 ambulatory Lance Damon Other [employer] Other Start: 03-05-2023 Telephone encounter Lance Damon [facility] Start: 03-01-2023 End: 03-01-2023 ambulatory Lance Damon Other [employer] Other Start: 03-01-2023 Encounter for genera l [...] lic 2000 panel - Serum or Plasma [facility] enter XR Lumbar spine Views [facility] Payers Date Payer Category Payer Unknown 1970 Unknown [id number] 1972 Unknown [id number] 1972 Unknown [id number] 1972 Unknown [id number] 1957 Self-pay [id number] 1957 Unknown [id number] Unknown MMO [id number] Unknown [place] BC/BS [id number] Social History Date Type Detail Facility Sex Assigned At [employer] Other Start: 1970 Sex Assigned At Male F [facility] Start: 12-28-2023 [facility] Medical Equipment Procedure Code Equipment Code Equipment Origin al Text Equipment Identifier Dates Pen [place] [id number] X 6 MM Start: 03-01-2023 Evaluation [...] and record. - instructed to update office [employer] Other Evaluation note 03-05-2023 Note Date & Type Note Facility 03-05-2023 Evaluation note Encounter Date Diagnosis Assessment Notes Feb, Type 2 diabetes mellitus with hyperglycemia , without long-term current use of insulin (ICD-10 - E11.65) [employer] Other Evaluation note 03-01-2023 Note Date & [...] Feb, Colon cancer screening (ICD-10 - Z12.11) [employer] Other Evaluation note Note Date & Type Note Facility Evaluation note No Information [employer] Other Evaluation note Note Date & Type Note Facility Evaluation note Diagnosis Onset Date Cigarette nicotine dependenc e without complication acute Diarrhea acute Primary hypertension acute Type 2 diabetes mellitus with hyperglycemia acute [facility] Work Phone: Evaluation note Note Date & Type Note Facility Evaluation note Diagnosis Onset Date Cigarette nicotine dependenc e without complication acute Diarrhea acute Primary hypertension acute Type 2 diabetes mellitus with hyperglycemia acute Type 2 diabetes mellitus with hyperglycemia acute [facility] Work Phone: History general Narrative - [...] hemorrhage Surgical History No know Surgical history [employer] Other History general Narrative - Reported Note Date & Type Note Facility History general Narrative - Reported Type Medical History Hyperlipidemia, mixed Medical History Controlled type 2 di abetes mellitus with hyperglycemia, without long-term current use of insulin Medical History Cigarette nicotine d ependence without complication Medical History Gastroesophageal ref lux disease with esophagitis without hemorrhage Surgical History No Surgical history information [employer] Other Summary Purpose Family History No Family [...] and content) DATE CREATED AUTHOR 05/06/2020 [facility] DATE CREATED AUTHOR AUTHOR'S ORGANIZ ATION 05/28/2024 [facility] REASON FOR VISIT (unrecogniz [...] BE BASED ON THE PRIMARY CLINICAL RECORDS. [employer] provides no warranty or guarantee of the accuracy or completeness of information in this document.
[2024-06-09 09:32] VITALS: BP 148/102; PULSE 93; TEMP 37; O2SAT 100
[2024-06-09 09:35] LABS: Glucometer 129 mg/dL (74-106)
[2024-06-09 10:00] VITALS: BP 179/100; PULSE 82; O2SAT 100
[2024-06-09 10:01] VITALS: BP 171/100; PULSE 74; O2SAT 100
[2024-06-09] MEDS: BUPIVACAINE HCL 0.25% PF 25 MG/10 ML VIAL 8 ML INJ (10:05)
[2024-06-09] MEDS: LIDOCAINE HCL 2% 400 MG/20 ML MDV INJ (10:05)
--- NOTE | 2024-06-09 10:05 | W.PM.PROCNOT ---
Date of procedure: 06/09/24 Pre-op diagnosis: Pain due to lumbar spondylosis without myelopathy Post-op diagnosis: same as pre-op Procedure: Procedure: Bilateral L4-5, L5-S1 medial branch block Medications: Bupivacaine 0.25% 6cc The patient was seen and examined in the preoperative holding area.? The informed consent was obtained and placed on the chart.? The patient was brought to the medical procedure unit and placed in the prone position.? A timeout was completed verifying correct patient, procedure site, positioning, plan, and special equipment.? Using aseptic technique, the needle was placed at left L4.? Under direct fluoroscopic visualization, a Quincke tip needle was advanced to the midpoint of the waist of the articular pillar at the respective medial branch segment. The above-mentioned injectate was placed in a 1 mL aliquot proceeded by negative aspiration.? The needle was removed.? The procedure was completed at all left L5, S1. The same procedure, at the same levels, was then completed on the right side. Insertion site was covered.? Patient was taken to the postprocedural recovery area and monitored for an appropriate length of time before found suitable for discharge in the accompaniment of a responsible adult. Anesthesia: Local Surgeon: Boogie Bahena Pathology: none sent Condition: stable Disposition: no change
== END 2024-06-09 10:09 | disposition home or self-care (01) ==
LOC: SURGOUT 09:00
PROVIDERS: PCP Internal Medicine; Visit Provider Anesthesiology
DX: M47.816 Spondylosis without myelopathy or radiculopathy, lumbar region (principal)
CPT/HCPCS: 36415; 64493; 64494; 82948; J0665

== ENCOUNTER 2024-06-23 10:45 | Outpatient (OUT) | payer OTHER, SELFPAY ==
--- NOTE | 2024-06-23 11:37 | PM.CN ---
Consult Note: HPI Data of Consult Patient: known to practice within the last 3 years Consult date: 06/23/24 Requesting Physician: Dulce Harvey NP Primary Care Provider: Lance Pool DO Consult Narrative Reason for consult: low back pain Narrative: 53yom who presents for assessment. underwent second diagnostic bilateral l4-5, l5-s1 mbb and notes >80% relief for 2 hours and subsequent return of pain to baseline. continues to have axial back pain at this time. cc:: CC: Dulce Harvey NP Review of Systems ROS Status of ROS 10 or more systems reviewed and unremarkable except as noted in history and below [facility] Medical History Osteoarthritis ?M19.90 - Unspecified osteoarthritis, unspecified site (ICD-10) Diabetes ?E11.9 - Type 2 diabetes mellitus without complications (ICD-10) Meds Home Medications and Allergies Home Medications ?Medication ?Instructions ?Recorded ?Confirmed ?Type benazepril 10 mg tablet 10 mg PO DAILY 05/06/24 06/09/24 History glimepiride 1 mg tablet 1 mg PO DAILY 05/06/24 06/09/24 History meloxicam 7.5 mg tablet 7.5 mg PO BID PRN pain #60 tabs 05/29/24 06/09/24 Rx Allergies Allergy/AdvReac Type Severity Reaction Status Date / Time No Known Drug Allergies Allergy Verified 06/09/24 09:36 Exam Narrative Exam Narrative: Psych-alert and oriented x 3. Attentive and appropriate, constitutionally normal, displays normal mood and affect per situation.? There are no obvious deficits in memory, reasoning, or intellect.? Skin-no obvious rashes, bruising, erythema noted to the patient's area of pain. Extremities- extremities are warm with minimal edema and palpable pulses. Lumbar-no significant tenderness to palpation noted in the lumbar spine and paraspinal musculature.? Pain is elicited with extension, and lateral rotation of the lumbar spine. Range of motion is slightly diminished with these motions due to pain. Facet loading maneuvers are positive bilaterally and do appear to be concordant with the patient's normal complaints of pain.? Coordination remains intact.? Gait remains non-antalgic. Assessment and Plan Assessment and Plan (1) Lumbar spondylosis: Plan 53yom who presents for assessment. imaging reviewed, shows multilevel spondylosis in lower lumbar spine. has undergone two separate bilateral l4-5, l5-s1 medial branch blocks with >80% relief and subsequent return of pain to baseline 2 hours later. given significant response, prudent to attempt bilateral l4-5, l5-s1 radiofrequency ablation under fluoroscopic guidance. he is in agreement. meds reviewed, no changes. follow up after procedure.
== END 2024-06-23 10:46 | disposition home or self-care (01) ==
LOC: PM 10:46
PROVIDERS: PCP Internal Medicine; Visit Provider Nurse Practitioner
DX: M47.816 Spondylosis without myelopathy or radiculopathy, lumbar region (principal)
CPT/HCPCS: G0463

== ENCOUNTER 2024-07-14 08:57 | Day surgery (SDC) | payer OTHER, SELFPAY ==
--- OUTSIDE RECORDS SUMMARY | 2024-07-14 09:20 | XMS_ITS | CCD ---
Author Organization [facility] Care Team Providers Care Merchandise Execution Leader Name Role Phone LANCE DAMON Consulting Unavailable BALL, LANCE Attending Unavailable BALL, LANCE Admitting Unavailable BALL, LANCE Consulting Unavailable BALL, LANCE Attending Unavailable BALL, LANCE Admitting Unavailable Ball, Lance Unavailable Giaugusto LYNCH, Boogie Dillon Attending Unavailable Ginallelyitis , Boogie Dillon Attending Unavailable Gieditis , Andmatt Dillon Attending Unavailable Gieditis , Andmatt Dillon Attending Unavailable Medications Current Medications Medication [...] 2023 12:00am October 09, 2023 10:01am Start: 01-30-2024 take 1 tablet by miguel th every [...] [Gastroesophageal reflux disease with esophagitis without hemorrhage] 04-03-2024 Chronic Essential hypertension (14 sources) Essential (primary) [...] 2019 Glucose [Mass/Vol] 108 mg/dL Normal [facility] Comment on above: Performed By: #### A 1C #### [facility] [address], [place] [address] Semaj Colmenares HbA1c (Bld) [Mass fraction] 5.4 % Normal <=6.0 [facility] Comment on above: Performed By: #### A 1C #### [facility] [address] [place], [place] [address] Semaj Colmenares MICROALBUMIN, RAND URon 04-06 mALB 7.1 mg/dL Normal <=30.0 [facility] Comment on above: Performed By: #### M ALBR #### [facility] [address], [place] [address] Semaj Colmenares mALBH PLEASE NOTE: NORMAL RANGE CHANGE, TESTING PERFORMED AT [facility]. Normal [facility] Comment on above: Performed By: #### M ALBR #### [facility] [address] [place], [place] [id number] Semaj Dedra PROF CHEM 8 (BAS METB)on Anion gap [Moles/Vol] 12.1 mmol/L Normal [facility] Comment on above: Performed By: #### T SH, BMP #### [facility] [address] [place] [address] Semaj Dedra Calcium [Mass/Vol] 9.2 mg/dL Normal 8.4-10.2 [facility] Comment on above: Performed By: #### T LOREN, BMP #### [facility] [address] [place] [address] Semaj Dedra Chloride [Moles/Vol] 105 mmol/L Normal 98-107 [facility] Comment on above: Performed By: #### T LOREN, BMP #### [facility] [address] [place] [address] Semaj Dedra CO2 [Moles/Vol] 31.0 mmol/L Critically high 22.0-30.0 [facility] Comment on above: Performed By: #### T LOREN, BMP #### [facility] [address] [place] [address] Semaj Dedra Creatinine [Mass/Vol] 0.80 mg/dL Normal 0.66-1.25 [facility] Comment on above: Performed By: #### T LOREN, BMP #### [facility] [address] [place], [place] [address] Semaj Dedra EGFR-AF INDONESIAN >60 Normal >=60 [facility] Comment on above: Performed By: #### T LOREN, BMP #### [facility] [address] [place], [place] [address] Semaj Dedra EGFR-NON AF INDONESIAN >60 Normal >=60 [facility] Comment on above: Performed By: #### T SH, BMP #### [facility] [address] [place] [address] Semaj Dedra Glucose [Mass/Vol] 174 mg/dL Critically high 74-106 [facility] Comment on above: Performed By: #### T SH, BMP #### [facility] [address] [place] [id number] Semaj Dedra Potassium [Moles/Vol] 4.1 mmol/L Normal 3.4-5.0 [facility] Comment on above: Performed By: #### T SH, BMP #### [facility] [address] [place] [id number] Semaj Dedra Sodium [Moles/Vol] 144 mmol/L Normal 137-145 [facility] Comment on above: Performed By: #### T SH, BMP #### [facility] [address] [place], [place] [address] Semaj Dedra Urea nitrogen [Mass/Vol] 17.0 mg/dL Normal 9.0-20.0 [facility] Comment on above: Performed By: #### T SH, BMP #### [facility] [address] [place] [address] Semaj Dedra Urea nitrogen/Creatinine [Mass ratio] 21.2 mg/mg Normal [facility] Comment on above: Performed By: #### T SH, BMP #### [facility] [address] [place], [place] [address] Semaj Dedra TSHon 04-22-2020 TSH Qn 1.219 uIU/mL Normal 0.470-4.680 [facility] Comment on above: Performed By: #### T SH, BMP #### [facility] [address] [place], [place] [address] Semaj Dedra TSH Qn SEE BELOW Normal [facility] Comment on above: Result Comment: <0.3 4 UIU/ml HYPERTHYROID 0.34-5.60 UIU/ml EUTHYROID >5.60 UIU/ml HYPOTHYROID Performed By: #### T SH, BMP #### [facility] [address] [place] [address] Semaj Caldwellen COVID-19 PCRon 02-26-2020 SARS-CoV-2, ABDIRAHMAN Not Detected Normal Not Detected [facility] Comment on above: Result Comment: This nucleic acid amplification test was developed and its performance characteristics determined by [employer]. Nucleic acid amplification tests include PCR and [...] assay. Performed By: #### C VDPCR #### [facility] [address] [place] [address] Semaj Colmenares Vital Signs Date Time Vital Sign Value Performing Clinician Facility 12-28-2023 10:310400 Body height 185.42 cm [facility] 12-28-2023 10:310400 Body mass index (BMI) [Ratio] 21.2 kg/m2 [facility] 12-28-2023 10:31-0400 Body weight 73.02 kg [facility] 12-28-2023 10:31-0400 Diastolic blood pressure 86 mm[Hg] [facility] 12-28-2023 10:31-0400 Heart rate 88 /min [facility] 12-28-2023 10:31-0400 SaO2% (BldA) [Mass fraction] 97 % [facility] 12-28-2023 10:31-0400 Systolic blood pressure 130 mm[Hg] [facility] 10-09-2023 10:020400 Body height 185.42 cm [facility] 10-09-2023 10:020400 Body mass index (BMI) [Ratio] 19.5 kg/m2 [facility] 10-09-2023 10:02-0400 Body weight 67.3 kg [facility] 10-09-2023 10:02-0400 Diastolic blood pressure 88 mm[Hg] [facility] 10-09-2023 10:02-0400 Heart rate 106 /min [facility] 10-09-2023 10:02-0400 Respiratory rate 12 /min [facility] 10-09-2023 10:02-0400 Systolic blood pressure 125 mm[Hg] [facility] 06-05-2023 14:00-0500 Body height 185.42 cm Lance Ball Other [facility] Other 06-05-2023 14:00-0500 Body mass index (BMI) [Ratio] 18.65 kg/m2 Lance Ball Other [facility] Other 06-05-2023 14:00-0500 Body weight 64.14 kg Lance Ball Other [facility] Other 06-05-2023 14:00-0500 Diastolic blood pressure 82 mm[Hg] Lance Ball Other [email or web address] Other 06-05-2023 14:00-0500 Respiratory rate 12 /min Lance Ball Other [email or web address] Other 06-05-2023 14:00-0500 Systolic blood pressure 114 mm[Hg] Lance Ball Other [employer] Other 03-01-2023 11:30-0400 Body height 185.42 cm Lance Ball Other [employer] Other 03-01-2023 11:30-0400 Body mass index (BMI) [Ratio] 19.79 kg/m2 Lance Ball Other [employer] Other 03-01-2023 11:30-0400 Body weight 68.04 kg Lance Ball Other [employer] Other 03-01-2023 11:30-0400 Diastolic blood pressure 77 mm[Hg] Lance Damon Other [employer] Other 03-01-2023 11:30-0400 Respiratory rate 12 /min Lance Damon Other [employer] Other 03-01-2023 11:30-0400 Systolic blood pressure 107 mm[Hg] Lance Damon Other [employer] Other Encounters Encounter Date Encounter Type Care Provider Facility Start: 06-23-2024 End: 06-23-2024 ambulatory Boogie Bahena MD Facility: [facility] Start: 06-09-2024 End: 06-09-2024 ambulatory Boogie Bahena MD Facility: [facility] Start: 05-19-2024 End: 05-19-2024 ambulatory Boogie Bahena MD Facility: [facility] Start: 04-21-2024 End: 04-21-2024 ambulatory Boogie Bahena MD Facility: [facility] Start: 12-28-2023 End: 12-28-2023 ambulatory [facility] Work Phone: Start: 12-28-2023 End: 12-28-2023 Patient encounter procedure [facility] Physician [facility] Work Phone: Start: 10-09-2023 End: 10-09-2023 ambulatory [facility] Work Phone: Start: 10-09-2023 End: 10-09-2023 Patient encounter procedure [facility] Physician [facility] Work Phone: Start: 06-15-2023 End: 06-15-2023 ambulatory Lance Damon Other [employer] Other Start: 06-15-2023 Telephone encounter Lance Damon [facility] Start: 06-08-2023 End: 06-08-2023 ambulatory Lance Damon Other [employer] Other Start: 06-08-2023 Telephone encounter Lance Damon [facility] Start: 06-05-2023 End: 06-05-2023 ambulatory Lance Damon Other [employer] Other Start: 06-05-2023 Office outpatient vi sit 25 minutes Lance Damon [facility] Start: 04-05-2023 End: 04-05-2023 ambulatory Lance Damon Other [employer] Other Start: 04-05-2023 Telephone encounter Lance Damon [facility] Start: 03-09-2023 End: 03-09-2023 ambulatory Lance Damon Other [employer] Other Start: 03-09-2023 Telephone encounter Lance Damon [facility] Start: 03-05-2023 End: 03-05-2023 ambulatory Lance Damon Other [employer] Other Start: 03-05-2023 Telephone encounter Lance Damon [facility] Start: 03-01-2023 End: 03-01-2023 ambulatory Lance Damon Other [employer] Other Start: 03-01-2023 Encounter for genera l [...] lic 2000 panel - Serum or Plasma [facility] enter XR Lumbar spine Views [facility] Payers Date Payer Category Payer Unknown 1970 Unknown [id number] [id number] [id number] 1970 Unknown [id number] 2.16.84 [id number] 1970 Unknown [id number] 2.16. [id number] 1972 Unknown [id number] 2.16. [id number] 1972 Unknown [id number] 2.16. [id number] 1972 Unknown [id number] 2.16. [id number] 1957 Self-pay [id number] 1957 Unknown [id number] Unknown O [id number] Unknown [facility] BC/BS [id number] Social History Date Type Detail Facility Sex Assigned At [employer] Other Start: 1970 Sex Assigned At Male [facility] Start: 12-28-2023 [facility] Medical Equipment Procedure Code Equipment Code Equipment Origin al Text Equipment Identifier Dates Pen Eagle [id number] X 6 MM Start: 03-01-2023 Evaluation [...] and record. - instructed to update office [employer] Other Evaluation note 03-05-2023 Note Date & Type Note Facility 03-05-2023 Evaluation note Encounter Date Diagnosis Assessment Notes Feb, Type 2 diabetes mellitus with hyperglycemia , without long-term current use of insulin (ICD-10 - E11.65) [employer] Other Evaluation note 03-01-2023 Note Date & [...] Feb, Colon cancer screening (ICD-10 - Z12.11) [employer] Other Evaluation note Note Date & Type Note Facility Evaluation note No Information [facility] Other Evaluation note Note Date & Type Note Facility Evaluation note Diagnosis Onset Date Cigarette nicotine dependenc e without complication acute Diarrhea acute Primary hypertension acute Type 2 diabetes mellitus with hyperglycemia acute [facility] Work Phone: Evaluation note Note Date & Type Note Facility Evaluation note Diagnosis Onset Date Cigarette nicotine dependenc e without complication acute Diarrhea acute Primary hypertension acute Type 2 diabetes mellitus with hyperglycemia acute Type 2 diabetes mellitus with hyperglycemia acute [facility] Work Phone: History general Narrative [...] hemorrhage Surgical History No know Surgical history [employer] Other History general Narrative - Reported Note Date & Type Note Facility History general Narrative - Reported Type Medical History Hyperlipidemia, mixed Medical History Controlled type 2 di abetes mellitus with hyperglycemia, without long-term current use of insulin Medical History Cigarette nicotine d ependence without complication Medical History Gastroesophageal ref lux disease with esophagitis without hemorrhage Surgical History No Surgical history information [employer] Other Summary Purpose Family History No Family [...] [facility] still DATE CREATED AUTHOR AUTHOR'S ORGANIZ ATION 06/27/2024 [facility] REASON FOR VISIT (unrecogniz ed section and [...] BE BASED ON THE PRIMARY CLINICAL RECORDS. [facility] provides no warranty or guarantee of the accuracy or completeness of information in this document.
[2024-07-14 09:33] VITALS: BP 146/101; PULSE 89; TEMP 36.8; O2SAT 100
[2024-07-14 09:43] LABS: Glucometer 147 mg/dL (74-106)
[2024-07-14 10:11] VITALS: BP 166/108; PULSE 88; O2SAT 98
[2024-07-14 10:12] VITALS: BP 173/101; PULSE 77; O2SAT 100
[2024-07-14] MEDS: BUPIVACAINE HCL 0.25% PF 25 MG/10 ML VIAL 4 ML INJ (10:16)
[2024-07-14] MEDS: LIDOCAINE HCL 2% 400 MG/20 ML MDV 16 ML INJ (10:16)
[2024-07-14] MEDS: METHYLPREDNISOLONE ACETATE 40 MG/ML VIAL 80 MG INJ (10:17)
--- NOTE | 2024-07-14 10:26 | P.ON_ITS ---
Date of procedure: 07/14/24 Pre-op diagnosis: Pain due to lumbar spondylosis without myelopathy Post-op diagnosis: same as pre-op Procedure: Procedure: Bilateral L4-5, L5-S1 radiofrequency ablation Medications: Bupivacaine 0.25% 6cc, lidocaine 2% 6cc, depomedrol 80mg The patient was seen and examined in the preoperative holding area.? The site was marked.? Written informed consent was obtained and placed on the chart.? The patient was brought to the medical procedure unit and placed in the prone position.? A timeout was completed verifying correct patient, procedure, positioning, and special requirements.? The skin overlying the target points, the designated medial branch, were prepped and draped in the usual sterile fashion.? The target point was achieved with a 20-gauge 15 cm with a 10 mm curved active tip radiofrequency cannula under direct fluoroscopic visualizati on.? The needle was inserted at level L4 on the right side. Needle tip position was confirmed with lateral fluoroscopic position.? Motor stimulation was carried out at 2 Hz up to 5 volts with the absence of extremity activity.? This was repeated at level L5, S1 on right side.?? Sensory stimulation was carried out.? Concordant pain was realized at the above- mentioned sites.? Then radiofrequency lesioning was carried out times 90 seconds at 80 degrees times 2 lesions at each level.? The radiofrequency probe was removed prior to cannula removal.? The above-mentioned injectate was placed in 1 mL increments.? The needle was removed. The same procedure, with the same steps, was then completed on the left side at the same levels. Insertion sites were covered.? The patient was taken to the postoperative recovery area and monitored for an appropriate length of time before being found suitable for discharge in the company of a responsible adult. Anesthesia: Local Surgeon: Boogie Bahena Pathology: none sent Condition: stable Disposition: no change
== END 2024-07-14 10:31 | disposition home or self-care (01) ==
PROVIDERS: PCP Internal Medicine; Visit Provider Anesthesiology
DX: M47.816 Spondylosis without myelopathy or radiculopathy, lumbar region (principal)
CPT/HCPCS: 36415; 64635; 64636; 82948; J0665; J1010

== ENCOUNTER 2024-09-19 09:26 | Outpatient (OUT) | payer OTHER, SELFPAY ==
--- NOTE | 2024-09-19 09:42 | XR_ITS ---
The [address] [address] Patient Name: KARTHIK SCHUSTER MRN: [id number] date: 1970 Sex: M Assigned Patient Location: LAB Current Patient Location: LAB Accession/Order Number: [id number] Exam Date: 09/19/2024 10:42 Report Date: 09/19/2024 10:44 At the request of: GEORGE DAMON DO Procedure: XR foot LT min 3V XR foot LT min 3V 09/19/2024 9:52 AM SIGNS AND SYMPTOMS: ^Diabetic Foot Ulcer PROTOCOL: Frontal, lateral, and oblique radiographs of the left foot COMPARISON: None FINDINGS: There is a marker along the plantar aspect of the foot beneath the third metatarsal. There is mild soft tissue swelling extending along the lateral aspect of the foot. The joint spaces are preserved. No osteolytic or bony destructive process. No fracture or dislocation. Mild plantar and Achilles surface calcaneal spurring is noted. XR/XR foot LT min 3V IMPRESSION: No radiographic evidence of ostial myelitis. Soft tissue swelling is noted along the lateral aspect of the left foot. Impression dictated by: Ernesto Kasper M.D. 09/19/2024 10:44 AM Dictation Location: [place] [address] Electronically authenticated by: [id number] Y Date: 09/19/2024 10:44
[2024-09-19 10:00] LABS: Basophils Percent Auto 0.3 % (0.2-2.0); Eosinophils Absolute Auto 0.2 10^3/uL (0.0-0.7); Eosinophils Percent Auto 2.2 % (0.9-7.0); Hematocrit 37.6 % (42.0-54.0); Hemoglobin 13.3 g/dL (14.0-18.0); Immature Granulocytes Abs Auto 0.02 10^3/uL (0.00-0.03); Immature Granulocytes Pct Auto 0.3 % (0.0-0.5); Lymphocytes Absolute Auto 1.3 10^3/uL (1.2-3.8); Lymphocytes Percent Auto 18.7 % (20.5-60.0); Mean Corpuscular HGB Conc 35.4 g/dL (29.9-35.2); Mean Corpuscular Hemoglobin 32.8 pg (25.9-34.0); Mean Corpuscular Volume 92.8 fL (80.0-94.0); Mean Platelet Volume 10.5 fL (9.5-13.5); Monocytes Absolute Auto 0.5 10^3/uL (0.3-0.8); Monocytes Percent Auto 7.4 % (1.7-12.0); Neutrophils Absolute Auto 4.8 10^3/uL (1.4-6.5); Neutrophils Percent Auto 71.1 % (43.0-75.0); Platelet Count 174 10^3/uL (150-450); Red Blood Count 4.05 10^6/uL (4.70-6.10); Red Cell Distribution Width 12.4 % (11.0-15.0); White Blood Count 6.7 10^3/uL (4.0-11.0)
[2024-09-19 10:17] LABS: Creatinine Urine Random 178.83 mg/dL (20.00-300.00); Microalbum Creatinine Ratio Ur 12.8 mg/g (0.0-29.9); Microalbumin Urine Random 2.3 mg/dL (<=30.0)
[2024-09-19 10:22] LABS: Alanine Aminotransferase 18 U/L (16-63); Albumin Globulin Ratio 0.8; Albumin Level 3.4 g/dL (3.4-5.0); Alkaline Phosphatase 63 U/L (46-116); Aspartate Amino Transferase 11 U/L (15-37); BUN Creatinine Ratio 21.9; Bilirubin Total 0.5 mg/dL (0.2-1.0); C Reactive Protein 3.61 mg/dL (<=0.50); Calcium 8.7 mg/dL (8.5-10.1); Carbon Dioxide 28.1 mmol/L (21.0-32.0); Chloride 107 mmol/L (98-107); Chol HDL Ratio 2.4; Cholesterol 138 mg/dL (<=200); Estimated GFR (African America >60 (>=60 mL/min/1.73m^2); Estimated GFR (Non-African Ame >60 (>=60 mL/min/1.73m^2); Globulin 4.1 g/dL; Glucose 125 mg/dL (74-106); HDL Cholesterol 58 mg/dL (40-60); LDL Cholesterol Calculated 63.2 mg/dL; Potassium 4.1 mmol/L (3.5-5.1); Sodium 143 mmol/L (136-145); Total Protein 7.5 g/dL (6.4-8.2); Triglycerides 84 mg/dL (<=150); VLDL CHOLESTEROL 16.8 mg/dL
[2024-09-19 11:02] LABS: Estimated Average Glucose 114 mg/dL; Glycohemoglobin A1C 5.6 % (4.5-6.2)
[2024-09-19 11:39] LABS: Prostate Specific Antigen Scrn 0.52 ng/mL (<=4.00)
== END 2024-09-19 09:27 | disposition home or self-care (01) ==
LOC: LAB 09:27
PROVIDERS: PCP Internal Medicine; Visit Provider Internal Medicine
DX: Z00.00 Encounter for general adult medical examination without abnormal findings (principal); E11.621 Type 2 diabetes mellitus with foot ulcer; L97.509 Non-pressure chronic ulcer of other part of unspecified foot with unspecified severity; Z12.5 Encounter for screening for malignant neoplasm of prostate
CPT/HCPCS: 73630; 80053; 80061; 82043; 82570; 83036; 85025; 86140; G0103

== ENCOUNTER 2024-12-10 06:42 | Outpatient (OUT) | payer OTHER, SELFPAY ==
--- OUTSIDE RECORDS SUMMARY | 2024-05-23 07:45 | XMS_ITS ---
Author Organization [facility] vices Address [address] [place] [phone] Care Team Providers Care Associate Brand Manager Name Role Phone Xi Dawson Unavailable [phone] REASON FOR VISIT CANCEL- Comp. Exam Encounters Encounter Location Date Provider Diagnosis [facility] [address] [place], [place] [id number] 05/23/2024 Xi Dawson Plan Of Treatment No Information Progress Notes * Shayan SCHUSTERDOB:1970 (54 yo M)Acc No.[id number]:05/23/2024 Patient: Shayan PANDYA Provider: Hector Dawson DDS :1970 A ge:53 Y S ex:Male Date:05/23/2024 Address:[address] [place], [place] [id number] Subjective: * Chief Complaints: * 1 . CANCEL- Comp. Exam. * Medical History: Objective: * Vitals: Assessment: Plan: * Treatment: * Billing Information: * Visit Code: * Procedure Codes: * Electronic signature of Yaniv Dawson DDS on 12/10/2024 at 06:44 AM EDT Sign off status: Pending * Provider: Hector Dawson DDS Date: 05/23/2024 Generated for Tena hillman/Matias/eTransmitting on: 0 12/10/2024 06:44 AM EDT
--- OUTSIDE RECORDS SUMMARY | 2024-11-27 14:40 | XMS_ITS | Encounter Summary ---
Author Organization [facility] Address [address] [place] [address] Care Team Providers Care Shellfish Harvester Name Role Phone Lance Pool Primary Care Provider [phone] Reason for Visit * Reason Comments Follow-up Ulcer check Encounter Details Date Type Department Care Team ([facility] st Contact Info) Description 11/27/2024 2:40 PM EDT Office Visit [facility] [address] 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) Social History Tobacco Use Types Packs/Day Years Used Date Smoking Tobacco: Every Day Cigarettes Tobacco Cessation:Ready to Q uit: Not Asked; Counseling Given: Yes Sex and Gender Information Value Date Recorded Sex Assigned at Not on file Legal Sex Male 10:03 AM EDT Gender Identity Not on file Sexual Orientation Not on file documented as of this encounter Last Filed Vital Signs Vital Sign Reading Time Taken Comments Blood Pressure - - Pulse - - Temperature - - Respiratory Rate 16 11/27/2024 2:15 PM EDT Oxygen Saturation - - Inhaled Oxygen Concentration - - Weight 80.7 kg (178 lb) 11/27/2024 2:15 PM EDT Height 188 cm (6' 2 ) 11/27/2024 2:15 PM EDT Body Mass Index 22.85 11/27/2024 2:15 PM EDT documented in this encounter Progress Notes * Mazin Shell, AMRIKM - 11/27/2024 4:10 PM EDT Patient: Shayan Flores : 1970 PCP: Lance Pool, DO SUBJECTIVE Patient present today for follow up of ulceration to left foot. Pt denies any n/f/v/c. Patient states that they have been using the following treatments for the ulcer of Betadine and oral antibiotics Pt is a DM2. Pt has suspected OM with cellulitis to the left foot and has been taking levaquin improvement. Awaits [facility]. Allergies: Allergies Allergen Reactions Penicillins Past Medical History: Past Medical History: Diagnosis Date Diabetes (HCC) Medications: Current Outpatient Medications: benazepril (Lotensin) 10 MG tablet, Take 10 mg by mouth Daily, Disp: , Rfl: levoFLOXacin (Levaquin) 500 MG tablet, Take 1 tablet (500 mg) by mouth Daily for 10 days, Disp: 10 tablet, Rfl: 0 Social History: Social History Socioeconomic History Marital status: Unmarried Spouse name: Not on file Number of children: Not on file Years of education: Not on file Highest education level: Not on file Occupational History Not on file Tobacco Use Smoking status: Every Day Types: Cigarettes Smokeless tobacco: Not on file Substance and Sexual Activity Alcohol use: Not on file Drug use: Not on file Sexual activity: Not on file Other Topics Concern Not on file Social History Narrative Not on file Social Drivers of Health Financial Resource Strain: Not on file Food Insecurity: Not on file Transportation Needs: Not on file Physical Activity: Not on file Stress: Not on file Social Connections: Not on file Intimate Partner Violence: Not on file Housing Stability: Not on file ROS: General: denies fever, chills, fatigue, malaise GI: denies loose or watery stool on antibiotic Musculoskeletal: denies arthritis, denies loss of strength, pain to hip, knees, back Cardiovascular: denies CP, palpitations, irregular rhythms OBJECTIVE LE EXAM: DERM: Positive hair growth to b/l feet with good skin turgor noted. Left sub 5th metatarsal region has a 0.3 cm x 0.5 cm x 0.4 cm with probe to capsule region of 5th MPJ region of left foot with probable probe to bone of the left 5th metatarsal neck regions with negative erythema surrounding ulceration and to the lateral aspect of his left foot with negative crepitus and dry and skin sloughing with greatly diminished edema VASC: Palpable pedal pulsed b/l with warm to cool tibia to toes b/l NEURO: 5.07 [place] monofilament test intact to digits and forefoot bilaterally 125Hz tuning fork diminished to 1st MPJ bilaterally ORTHO: +5/5 DF/PF/IN/EV right, +5/5 DF/PF/IN/EV left. 20 degrees inversion and 10 degrees eversion STJ b/l. Ankle ROM less than 10 degrees b/l. XRAY: US: ASSESSMENT 1. Cellulitis of left foot 2. Osteomyelitis of ankle or foot, acute, left (HCC) 3. Diabetes mellitus due to underlying condition with diabetic polyneuropathy, without long-term current use of insulin (HCC) 4. 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 Pt to continue with Betadine daily Today's procedure is a staged procedure and patient may need further procedures in the future. patient await MRI Refill Levaquin Patient currently does not have insurance covered [facility] and does not want to incur cost and wouldlike referral to other provider outside [facility] and therefore refer to outside provider and patient to check with insurance for coverage and to go to hospital if any signs of infection Mazin Shell DPM documented in this encounter Plan of Treatment Upcoming Encounters Date Type Department Care Team ([facility] st Contact Info) Description 12/11/2024 10:40 AM EDT Office Visit [facility] [address] 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
--- OUTSIDE RECORDS SUMMARY | 2024-12-10 06:44 | XMS_ITS | Encounter Summary ---
Author Organization [facility] Address [address] [place] [address] Care Team Providers Care Firer Tunnel Kiln Name Role Phone Lance Pool Primary Care Provider [phone] Reason for Visit * Reason Onset Date Comments Work note 12/03/2024 Encounter Details Date Type Department Care Team ([facility] st Contact Info) Description 12/03/2024 Telephone [facility] [address] [place] [address] Mazin Shell DPM 3006 [facility] 5 [place] [address] Work note Social History Tobacco Use Types Packs/Day Years Used Date Smoking Tobacco: Every Day Cigarettes Sex and Gender Information Value Date Recorded Sex Assigned at Not on file Legal Sex Male 10:03 AM EDT Gender Identity Not on file Sexual Orientation Not on file documented as of this encounter Miscellaneous Notes * Telephone Encounter - Marlene Wan MA - 12/05/2024 9:45 AM EDT I SPOKE WITH SHAYAN AND HE IS WILLING TO SEE DR ROBERT SHEIKH IN [place]. ACCORDING TO [employer] WEBSITE AND THE [facility] WEBSITE - [facility] IS ACCEPTED FOR THIS PROVIDER. DEMOS AND OFFICE NOTE SENT TO [facility] DR SHEIKH TO CONTACT PT TO SCHEDULE. * Telephone Encounter - Marlene Wan MA - 12/05/2024 9:22 AM EDT I called to Dr. Spencer ([facility]) and they DO NOT take [employer], despite the [employer] website stating they do. Dr. Krysta Villarreal also shows as in network but her office is closed today. * Telephone Encounter - Marlene Wan MA - 12/05/2024 9:16 AM EDT I called Dr. Aguilar DPM ([place], [place]) and the unit receptionist told me to check [employer] to see if they are in network. I checked on the [employer] website and Dr. Sheikh is in network. [facility] to return call to let him know he can schedule with this dr. * Telephone Encounter - Marlene Wan MA - 12/05/2024 9:09 AM EDT I also searched on [employer] and still did not find a new active anthem plan. * Telephone Encounter - Marlene Wan MA - 12/05/2024 8:59 AM EDT As of 12/05/24 - The [place] Medicaid portal still shows [employer] for the month of December. We will not see patient as long as he has [employer] UNLESS he is willing to be self-pay and pay in full at the time of service. Patient was provided a list of other Podiatrists at his last visit to contact for continuation of care. * Telephone Encounter - Mazin Shell DPM - 12/03/2024 12:21 PM EDT Haroon, please take this over, okay to do per note above * Telephone Encounter - Aurelia Ye - 12/03/2024 11:37 AM EDT Pt called, he is still working with his HR to get [place] verified. Pt asking if he could get an extension of time off work for next week. States there is blood comingfrom the ulcer. He is at work today and states tomorrow should be an easy day with the rain. His MRI is scheduled for 12/11/24 at [facility]. Please advise documented in this encounter Plan of Treatment Upcoming Encounters Date Type Department Care Team (Late st Contact Info) Description 12/11/2024 10:40 AM EDT Office Visit [facility] 112 [facility] 120 [place] [address] Mazin Shell DPM [address] [address] documented as of this encounter Visit Diagnoses Not on filedocumented in this encounter Care Teams Firer Tunnel Kiln Relationship Specialty Start Date End Date Lance Pool DO [address] [place] [address] PCP - General Internal Medicine 10/23/24 documented as of this encounter
--- OUTSIDE RECORDS SUMMARY | 2024-12-10 06:44 | XMS_ITS | Encounter Summary ---
Author Organization [facility] Address [address] [place] [address] Care Team Providers Care Evaporative Cooler Installer Name Role Phone Lance Pool DO Primary Care Provider [phone] Encounter Details Date Type Department Care Team (Latest Contact Info) Description 11/27/2024 Travel Social History Tobacco Use Types Packs/Day Years Used Date Smoking Tobacco: Every Day Cigarettes Sex and Gender Information Value Date Recorded Sex Assigned at Not on file Legal Sex Male 10:03 AM EDT Gender Identity Not on file Sexual Orientation Not on file documented as of this encounter Plan of Treatment Upcoming Encounters Date Type Department Care Team (Late st Contact Info) Description 12/11/2024 10:40 AM EDT Office Visit [facility] 112 [facility] 120 [place] [address] Mazin Shell DPM 3006 [facility] 5 [place] [address] documented as of this encounter Visit Diagnoses Not on filedocumented in this encounter Care Teams Evaporative Cooler Installer Relationship Specialty Start Date End Date Lance Pool DO [address] [facility] [place] [address] PCP - General Internal Medicine 10/23/24 documented as of this encounter
--- OUTSIDE RECORDS SUMMARY | 2024-12-10 06:44 | XMS_ITS | Encounter Summary ---
Author Organization [facility] Address [address] [place] [address] Care Team Providers Care Wastewater Design Engineer Name Role Phone Lance Pool DO Primary Care Provider [phone] Encounter Details Date Type Department Care Team (Late st Contact Info) Description 11/27/2024 Isaiah flowsheet [facility] [address] [place] [address] Mazin Shell DPM [address] [address] Social History Tobacco Use Types Packs/Day Years [...] EDT Office Visit [facility] [address] [place] [address] Mazin Shell DPM [address] [address] documented as of this encounter Visit Diagnoses Not on filedocumented in this encounter Care Teams Wastewater Design Engineer Relationship Specialty Start Date End Date Lance Pool DO [address] [facility] [place] [address] PCP - General Internal Medicine 10/23/24 documented as of this encounter
--- OUTSIDE RECORDS SUMMARY | 2024-12-10 06:44 | XMS_ITS | Patient Health Record ---
[facility] Address [address] [place] [address] Care Team Providers Care Pipe Smoker Machine Operator Name Role Phone Benjamin Olivia Primary Care Provider [phone] Dr. Hernesto Newton Unavailable [phone] Reason For Referral No Information Encounters Encounter Location Date Provider Diagnosis [facility] [address] [place] [address] 09/23/2024 Hernesto Negrete Encounter for dental examination and cleaning with abnormal findings Z01.21 ; Other dental procedure status Z98.818 ; Disturbances in tooth eruption K00.6 ; Cracked tooth K03.81 and Complete loss of teeth, unspecified cause, class I K08.101 Assessments Encounter Date Diagnosis (ICD Code) Assessment Notes Treatment Notes Treatment Clinical Notes Section Notes 09/23/2024 Encounter for dental examination and cleaning with abnormal findings (ICD-10 - Z01.21) 09/23/2024 Other dental procedure status (ICD-10 - Z98.818) 09/23/2024 Disturbances in tooth eruption (ICD-10 - K00.6) 09/23/2024 Cracked tooth (ICD-10 - K03.81) 09/23/2024 Complete loss of teeth, unspecified cause, class I (ICD-10 - K08.101) Plan Of Treatment Next Appt Details Provider Name:Hernesto Negrete, 0 05/13/2025 08:00:00 AM, [address] [place], [address], Provider Name:Hernesto Negrete, 0 05/20/2025 08:00:00 AM, [address] [place], [address], Provider Name:Hernesto Negrete, 0 05/27/2025 08:00:00 AM, [address] [place], [place], [address], Provider Name:Hernesto Negrete, 0 06/03/2025 08:00:00 AM, [address] [place], [place], [address], Insurance Providers Payer Name Payer Address Payer Phone Subscriber Number Group Number Insured Name Patient Relationship to Insured Coverage Start Date Coverage End Date Dental [employer] [facility] Medicaid [address] [place] [address] [id number] KARTHIK SCHUSTER Self - patient is the insured 5 Dental [employer] [facility] [employer] [address] [place] [address] [id number] AKRTHIK SCHUSTER Self - patient is the insured 5
--- OUTSIDE RECORDS SUMMARY | 2024-12-10 06:44 | XMS_ITS | Clinical Summary ---
Author Organization [facility] Address [address] [place] [address] Care Team Providers Care Senior Reactor Operator Name Role Phone Lance Pool Primary Care Provider [phone] Allergies Active Allergy Reactions Criticality Noted Date Comments Penicillins 10/23/2024 Medications benazepril (Lotensin) 10 MG tablet Take 10 mg by mouth Daily Active clindamycin (Cleocin) 300 MG capsuleIndicati ons:Osteomyelit is of ankle or foot, acute, left (HCC) Take 1 capsule (300 mg) by mouth in the morning and 1 capsule (300 mg) in the evening and 1 capsule (300 mg) before bedtime. Do all this for 10 days. 30 capsule 5 11/24/19 25 levoFLOXacin (Levaquin) 500 MG tabletIndicatio ns:Osteomyeliti s of ankle or foot, acute, left (HCC) Take 1 tablet (500 mg) by mouth Daily for 10 days 10 tablet 5 11/21/19 25 Discontinue d(Reorder) levoFLOXacin (Levaquin) 500 MG tabletIndicatio ns:Osteomyeliti s of ankle or foot, acute, left (HCC) Take 1 tablet (500 mg) by mouth Daily for 10 days 10 tablet 5 11/28/19 25 Discontinue d(Reorder) levoFLOXacin (Levaquin) 500 MG tabletIndicatio ns:Osteomyeliti s of ankle or foot, acute, left (HCC) Take 1 tablet (500 mg) by mouth Daily for 10 days 10 tablet 5 12/08/19 25 Active Problems No known active problems Encounters Date Type Department Care Team Description 12/03/2024 Telephone [facility] [address] [place] [address] Mazin Shell DPM Work note 11/27/2024 2:40 PM EDT Office Visit [facility] [address] [facility] 120 [place] [address] Mazin Shell DPM Cellulitis of left foot (Primary Dx); Osteomyelitis of ankle or foot, acute, left (HCC); Diabetes mellitus due to underlying condition with diabetic polyneuropathy, without long-term current use of insulin (HCC); 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) 11/27/2024 Bamboo flowsheet [facility] [address] [address] [place] [address] Mazin Shell DPM 11/27/2024 Travel 11/20/2024 4:10 PM EDT Office Visit [facility] [address] [address] [place] [address] Mazin Shell DPM Cellulitis of left foot (Primary Dx); Osteomyelitis of ankle or foot, acute, left (HCC); Diabetes mellitus due to underlying condition with diabetic polyneuropathy, without long-term current use of insulin (HCC); 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) 11/20/2024 Bamboo flowsheet [facility] [address] [address] [place] [address] Mazin Shell DPM 11/20/2024 Travel 11/18/2024 Telephone [facility] [address] [place] [address] Marlene Wan MA [facility] 11/18/2024 Telephone [facility] [address] [address] [place] [address] Mazin Shell DPM MRI 11/13/2024 10:10 AM EDT Office Visit [facility] [address] [address] [place] [address] Mazin Shell DPM Cellulitis of left foot (Primary Dx); Diabetes mellitus due to underlying condition with diabetic polyneuropathy, without long-term current use of insulin (HCC); Osteomyelitis of ankle or foot, acute, left (HCC); 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) 11/13/2024 Bamboo flowsheet [facility] [address] [facility] [address] [place] [address] Mazin Shell, DPM 11/13/2024 Travel 10/30/2024 3:20 PM EDT Office Visit [facility] [address] [facility] [address] [place] [address] Mazin Shell DPM Cellulitis of left foot (Primary Dx); Diabetes mellitus due to underlying condition with diabetic polyneuropathy, without long-term current use of insulin ([facility]); Foot ulcer, right, with fat layer exposed ([facility]) 10/30/2024 Abstract [facility] [address] [facility] [address] [place] [address] Mazin Shell, DPM 10/30/2024 Bamboo flowsheet [facility] [address] [facility] [address] [place] [address] Mazin Shell, DPM 10/30/2024 Travel 10/23/2024 3:20 PM EDT Office Visit [facility] [address] [facility] [address] [place] [address] Mazin Shell DPM Cellulitis of left foot (Primary Dx); Foot ulcer, right, with fat layer exposed ([facility]); Diabetes mellitus due to underlying condition with diabetic polyneuropathy, without long-term current use of insulin ([facility]) 10/23/2024 Bamboo flowsheet [facility] [address] [facility] [address] [place] [address] Mazin Shell, DPM 10/23/2024 Travel from Last 3 Months Family History Relation Name Status Comments Father Alive Mother Social History Tobacco Use Types Packs/Day Years Used Date Smoking Tobacco: Every Day Cigarettes Tobacco Cessation:Ready to Q uit: Not Asked; Counseling Given: Yes Sex and Gender Information Value Date Recorded Sex Assigned at Not on file Legal Sex Male 10:03 AM EDT Gender Identity Not on file Sexual Orientation Not on file Last Filed Vital Signs Vital Sign Reading Time Taken Comments Blood Pressure - - Pulse - - Temperature - - Respiratory Rate 16 11/27/2024 2:15 PM EDT Oxygen Saturation - - Inhaled Oxygen Concentration - - Weight 80.7 kg (178 lb) 11/27/2024 2:15 PM EDT Height 188 cm (6' 2 ) 11/27/2024 2:15 PM EDT Body Mass Index 22.85 11/27/2024 2:15 PM EDT Plan of Treatment Upcoming Encounters Date Type Department Care Team (Late st Contact Info) Description 12/11/2024 10:40 AM EDT Office Visit [facility] 112 [facility] 120 [place] [address] Mazin Shell DPM 3006 [facility] 5 [place] [address] Insurance [address] [place] [address] BS Care Teams Senior Reactor Operator Relationship Specialty Start Date End Date Lance Pool DO [address] [facility] [place] [address] PCP - General Internal Medicine 10/23/24
--- OUTSIDE RECORDS SUMMARY | 2024-12-10 06:45 | XMS_ITS | Clinical Summary ---
Author Organization [facility] Address [facility] [id number] [address] [place] [address] Care Team Providers Care Ceramic Designer Name Role Phone Unavailable Primary Care Provider Unavailabl e Social History Tobacco Use Types Packs/Day Years Used Date Smoking Tobacco: Never Assessed Childcare Answer Date Recorded Childcare Unknown 10/16/2018 Employment Answer Date Recorded Employment Unknown 10/16/2018 Sex and Gender Information Value Date Recorded Sex Assigned at Not on file Legal Sex Male 11:28 AM EDT Gender Identity Not on file Sexual Orientation Not on file Plan of Treatment Health Maintenance Due Date Last Done Comments Depression Screening 1984 Tobacco Screening 1984 Adult BMI Screening 1990 DTaP,Tdap and Td Vaccines (1 - Tdap) 08/17/1991 Zoster (Shingles) Vaccine (1 of 2) 2022 Influenza Vaccine 01/05/2025 Medical Devices Not on file Procedures Procedure Name Priority Date/Time Associated Diagnosis Comments XR CHEST B READER Routine 10/07/2024 2:1 6 PM EDT Pre-employment health screening examination from Last 3 Months Results * X-ray chest B reader (10/07/2024 2:16 PM EDT) Narrative SYSTEMGENERATED, DOCUMENTATION - 10/07/2024 2:17 PM EDT This study will be sent out and read by a B reader. There will be no interpretation on this study. For full report details, please reach out to your physician. Effective 09/21/2020 this image will be visible to you in MyChart. us Consuelo Wynn APPRENTICE JOCKEY-COMPANY LAUNDRY WORKER IMG DIAGNOSTIC IMAGING OR DERABLES Final Result from Last 3 Months
--- OUTSIDE RECORDS SUMMARY | 2024-12-10 06:45 | XMS_ITS | Encounter Summary ---
Author Organization [facility] Address [address] [place] [address] Care Team Providers Care Cloth Dyer Name Role Phone Lance Pool DO Primary Care Provider [phone] Encounter Details Date Type Department Care Team (Late st Contact Info) Description 10/30/2024 Abstract [facility] [address] [place] [address] Mazin Shell DPM [address] [address] Social History Tobacco Use Types Packs/Day Years [...] CI PODIATRY [address] [place] [address] Mazin Shell DPM [address] [address] documented as of this encounter Visit Diagnoses Not on filedocumented in this encounter Care Teams Cloth Dyer Relationship Specialty Start Date End Date Lance Pool DO [address] [facility] [place] [address] PCP - General Internal Medicine 6/19/25 documented as of this encounter
--- OUTSIDE RECORDS SUMMARY | 2024-12-10 06:45 | XMS_ITS | Patient Health Record ---
Author Organization [facility] vice Address [address] [place] [id number] Care Team Providers Care An/Sqq 89(V)15 Sonar System Journeyman Name Role Phone Xi Dawson Unavailable [phone] Reason For Referral No Information Medications Medication SIG (Take, Route, Fr equency, Duration) Notes Start Date End Date Status Glimepiride 1 MG Oral; Duration: 30 Days Active Benazepril HCl 10 MG TAKE 1 TABLET BY [facility] ONCE DAILY Oral; Duration: 30 Days Ac tive Vital Signs Heart Rate 86 /min 08/04/2024 Height-cm 187.96 cm 08/04/2024 Blood pressure diastolic 100 mm Hg 08/04/2024 Weight-kg 83.01 kg 08/04/2024 Height 6'2 in 08/04/2024 Blood pressure systolic 164 mm Hg 08/04/2024 Weight 183 lbs 08/04/2024 BMI 23.49 kg/m2 08/04/2024 Encounters Encounter Location Date Provider Diagnosis [facility] Main [address] [place] [id number] 08/04/2024 Xi Dawson 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 ; Encounter for dental examination and cleaning with abnormal findings Z01.21 and Encounter for screening for dental disorders Z13.84 Assessments Encounter Date Diagnosis (ICD Code) Assessment Notes Treatment Notes Treatment Clinical Notes Section Notes 08/04/2024 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) 08/04/2024 Encounter for dental examination and cleaning with abnormal findings (ICD-10 - Z01.21) 08/04/2024 Encounter for screening for dental disorders (ICD-10 - Z13.84) Plan Of Treatment No Information Insurance Providers Payer Name Payer Address Payer Phone Subscriber Number Group Number Insured Name Patient Relationship to Insured Coverage Start Date Coverage End Date [employer]al [employer] [address] [place] [address] [id number] Shayan Flores Self - patient is the insured 5 DMedicaid CFC after Amerihealt hDentaques t [address] [place], [place] [id number] Shayan Flores Self - patient is the insured 5
--- OUTSIDE RECORDS SUMMARY | 2024-12-10 06:45 | XMS_ITS | Encounter Summary ---
Author Organization [facility] Address [facility], [address] [place] [address] Care Team Providers Care Rag Grader Name Role Phone Unavailable Primary Care Provider Unavailabl e Encounter Details Date Type Department Care Team (Late st Contact Info) Description 12/09/2024 Abstract [facility] [address] [facility] [address] [place] [address] Payton Krueger RN Social History Tobacco Use Types Packs/Day Years Used Date Smoking Tobacco: Never Assessed Sex and Gender Information Value Date Recorded Sex Assigned at Not on file Legal Sex Male 9:21 PM EST Gender Identity Not on file Sexual Orientation Not on file documented as of this encounter Last Filed Vital Signs Vital Sign Reading Time Taken Comments Blood Pressure - - Pulse - - Temperature - - Respiratory Rate - - Oxygen Saturation - - Inhaled Oxygen Concentration - - Weight 80.7 kg (178 lb) 12/09/2024 3:25 PM EDT Height 188 cm (6' 2 ) 12/09/2024 3:25 PM EDT Body Mass Index 22.85 12/09/2024 3:25 PM EDT documented in this encounter Plan of Treatment Upcoming Encounters Date Type Department Care Team (Late st Contact Info) Description 12/18/2024 9:30 AM EDT Appointment [facility] [address] [facility] [address] [place] [address] Andi Sheikh DPM [address] [facility] [address] [address] left foot documented as of this encounter Visit Diagnoses Not on filedocumented in this encounter
--- OUTSIDE RECORDS SUMMARY | 2024-12-10 06:45 | XMS_ITS | Encounter Summary ---
Author Organization [facility] Address [address] [place] [address] Care Team Providers Care Sausage Linker Name Role Phone Lance Pool DO Primary Care Provider [phone] Reason for Visit * Reason Onset Date Comments [facility] RETRO REQUESTS 11/18/2024 Encounter Details Date Type Department Care Team (Late st Contact Info) Description 11/18/2024 Telephone [facility] [address] [place] [address] Marlene Wan MA [facility] RETRO REQUESTS Social History Tobacco Use Types Packs/Day Years Used Date Smoking Tobacco: Every Day Cigarettes Sex and Gender Information Value Date Recorded Sex Assigned at Not on file Legal Sex Male 10:03 AM EDT Gender Identity Not on file Sexual Orientation Not on file documented as of this encounter Miscellaneous Notes * Telephone Encounter - Marlene Wan MA - 12/01/2024 8:34 AM EDT Retro requests are still pending and can take up to 30 for review. * Telephone Encounter - Marlene Wan MA - 11/28/2024 7:34 AM EDT AUTH REQUEST ALSO SENT FOR 11/27/24 VISIT. * Telephone Encounter - Marlene Wan MA - 11/18/2024 9:53 AM EDT Faxed retro request to [facility] for the followin10/23/24 -[phone] 10/30/24 -[phone] 11/13/24 -[phone] documented in this encounter Plan of Treatment Upcoming Encounters Date Type Department Care Team (Late st Contact Info) Description 12/11/2024 10:40 AM EDT Office Visit [facility] [address] [facility] 120 [place] [address] Mazin Shell DPM 3006 [facility] 5 [place] [address] documented as of this encounter Visit Diagnoses Not on filedocumented in this encounter Care Teams Sausage Linker Relationship Specialty Start Date End Date Lance Pool DO [address] [facility] [place] [address] PCP - General Internal Medicine 10/23/24 documented as of this encounter
--- OUTSIDE RECORDS SUMMARY | 2024-12-10 06:45 | XMS_ITS | Clinical Summary ---
Author Organization [facility] Address [facility], [address] [place] [address] Care Team Providers Care Garbage Collection Supervisor Name Role Phone Unavailable Primary Care Provider Unavailabl e Allergies Active Allergy Reactions Criticality Noted Date Comments Penicillins 12/09/2024 Medications levoFLOXacin (LEVAQUIN) 500 MG tablet Take 1 tablet by mouth daily 11/30/2024 Active benazepril (LOTENSIN) 10 MG tablet Take 1 tablet by mouth daily Active Encounters Date Type Department Care Team Description 12/09/2024 Abstract [facility] [address] [place] [address] [address] [place] [id number] Payton Krueger RN from Last 3 Months Social History Tobacco Use Types Packs/Day Years [...] Mass Index 22.85 12/09/2024 3:25 PM EDT Plan of Treatment Upcoming Encounters Date Type Department Care Team (Late st Contact Info) Description 12/18/2024 9:30 AM EDT Appointment [facility] [address] [place] [address] [address] [place] [address] Andi Sheikh DPM [address] [facility] [address] [address] left foot Health Maintenance Due Date Last Done Comments Depression Screen 1984 HIV screen 08/17/1987 Hepatitis C screen 1990 DTaP/Tdap/Td vaccine (1 - Tdap) 08/17/1991 Hepatitis B vaccine (1 of 3 - 19+ 3-dose series) 08/17/1991 Lipids 2012 Colonoscopy 2017 Colorectal Cancer Screen 2017 FIT/FOBT: Average risk 2017 Fecal-DNA (Cologuard): Average risk 2017 Sigmoidoscopy/CT colonography 2017 Pneumococcal 50+ years Vacci ne (1 of 1 - PCV) 2022 Shingles vaccine (1 of 2) 2022 COVID-19 Vaccine (1 - 2023-2 5 season) 2024 Flu vaccine (#1) 12/05/2024 Hepatitis A vaccine Aged Out No longe r eligible based on patient's age to complete this topic Hib vaccine Aged Out No longer eligi ble based on patient's age to complete this topic Meningococcal (ACWY) vaccine Aged Out No longer eligible based on patient's age to complete this topic Meningococcal B vaccine Aged Out No l onger eligible based on patient's age to complete this topic Polio vaccine Aged Out No longer elig ible based on patient's age to complete this topic
--- NOTE | 2024-12-10 06:53 | MR_ITS ---
[address] [address] Patient Name: KARTHIK SCHUSTER MRN: [id number] date: 1970 Sex: M Assigned Patient Location: MRI Current Patient Location: MRI Accession/Order Number: [id number] Exam Date: 12/10/2024 13:39 Report Date: 12/10/2024 13:44 At the request of: PONCHO JULIAN Procedure: MR foot LT wo con MR foot LT wo con 12/10/2024 7:45 AM SIGNS AND SYMPTOMS: Osteomyelitis of ankle or foot, acute, left M86.172, ulceration over left fifth digit with pain PROTOCOL: Multiplanar multisequence MR images of the left foot without contrast COMPARISON: 09/19/2024 FINDINGS: Lisfranc ligament: Intact. Hallux: Osseous: Normal. Extensor tendon: Normal. Flexor tendon: Normal. First metatarsophalangeal joint: Intact. Hallux-sesamoid complex: Normal. Second ray: Osseous: Normal. Extensor tendon: Normal. Flexor tendon: Normal. Second metatarsophalangeal joint: Intact. Plantar plate: Normal. Third ray: Osseous: Normal. Extensor tendon: Normal. Flexor tendon: Normal. Third metatarsophalangeal joint: Intact. Plantar plate: Normal. Fourth ray: Osseous: Normal. Extensor tendon: Normal. Flexor tendon: Normal. Fourth metatarsophalangeal joint: Intact. Plantar plate: Normal. Fifth ray: Osseous: There is a destructive process along the head of the fifth metatarsal with abnormal marrow signal consistent with osteomyelitis/edema throughout the fifth metatarsal. This extends into the proximal and middle phalanx of the fifth digit. Extensor tendon: Normal. Flexor tendon: Normal. Fifth metatarsophalangeal joint: There is a bony destructive process affecting the articular surface of the metatarsal. There is an adjacent irregularly shaped fluid collection suspicious for abscess or septic arthropathy along the lateral margin of the joint space measuring up to 1.9 cm in greatest dimension.. Plantar plate: Normal. Interspaces: Interdigital (Douglas) neuroma: None. Intermetatarsal bursitis: None. Soft tissues: Significant soft tissue edema is noted concentrated along the area of ulceration along the lateral aspect of the left foot consistent with cellulitis. Muscles: Edema is noted throughout the intrinsic muscles of the foot consistent with accompanying myositis. Bones: Normal. Nerves: Normal. Blood vessels: Normal. MR/MR foot LT wo con IMPRESSION: There is a destructive process along the head of the fifth metatarsal with abnormal marrow signal consistent with osteomyelitis/edema throughout the fifth metatarsal. This extends into the proximal and middle phalanx of the fifth digit. There is a bony destructive process affecting the articular surface of the metatarsal. There is an adjacent irregularly shaped fluid collection suspicious for abscess or septic arthropathy along the lateral margin of the joint space measuring up to 1.9 cm in greatest dimension. Significant soft tissue edema is noted concentrated along the area of ulceration along the lateral aspect of the left foot consistent with cellulitis. Edema is noted throughout the intrinsic muscles of the foot consistent with accompanying myositis. Impression dictated by: Ernesto Kasper M.D. 12/10/2024 1:44 PM Dictation Location: [place] [address] Electronically authenticated by: [id number] Y Date: 12/10/2024 13:44
== END 2024-12-10 06:43 | disposition home or self-care (01) ==
LOC: MRI 06:42
PROVIDERS: PCP Internal Medicine
DX: M86.172 Other acute osteomyelitis, left ankle and foot (principal); L03.116 Cellulitis of left lower limb
CPT/HCPCS: 73718